=== PATIENT | female | born 1970 | race African-American/Black ===

== ENCOUNTER 2021-11-30 07:40 | Inpatient (IN) ==
[2021-11-30] MEDS ORDERED: ONDANSETRON 4 MG/2 ML VIAL IV STA (08:25)
[2021-11-30] MEDS ORDERED: SODIUM CHLORIDE 0.9% 1,000 ML IV STA (08:25)
[2021-11-30 08:37] LABS: Basophils # 0.1 10*3/uL (0.0-0.2); Basophils % 0.9 % (0.0-0.8); Eosinophils % 0.2 % (0.00-10.9); Hematocrit 22.5 VOL% (35.7-47.0); Hemoglobin 7.1 GM/DL (12.0-16.0); Immature Granulocytes % 3.9 %; Immature Granulocytes Absolute 0.36 #; Lymphocytes # 2.6 10*3/uL (1.4-4.0); Lymphocytes % 27.8 % (21.3-54.2); Mean Corpuscular HGB Conc 31.6 GM/DL (32-36); Mean Corpuscular Volume 81.5 FL (87-102); Monocytes # 3.2 10*3/uL (0.11-0.8); Monocytes % 34.4 % (1.7-12.7); NRBC # 17.23 10*3/uL; Neutrophils % 32.8 % (38.7-73.9); Platelet Count 108 T/CUMM (130-400); Red Blood Count 2.76 MC/CUMM (3.8-5.5); Red Cell Distribution Width 19.5 % (9.3-17.3); White Blood Count 9.2 T/CUMM (4-12)
[2021-11-30 08:52] LABS: Albumin 3.5 G/DL (3.4-5.0); Bilirubin,Total 1.4 MG/DL (0.20-1.00); Calcium 11.9 MG/DL (8.5-10.1); Potassium 3.7 MMOL/L (3.5-5.1); Total Protein 8.6 G/DL (6.4-8.2)
[2021-11-30 09:02] LABS: Lymphocytes 47 % (20-55); Nucleated Red Blood Cells 384 (0-5); Total Cells Counted 100
[2021-11-30 09:03] LABS: Atypical Lymphocytes Few; Hypochromia 1+; Microcytosis 1+
[2021-11-30 09:45] LABS: % Iron Saturation 16.7 % (18-50); Ferritin 897.3 ng/mL (8-252)
[2021-11-30 09:59] LABS: Folate > 24.00 NG/ML (5.38-24.0); Vitamin B12 920 PG/ML (211-911)
[2021-11-30] MEDS ORDERED: ACETAMINOPHEN 325 MG TABLET PO PRN (10:30)
[2021-11-30] MEDS ORDERED: PROMETHAZINE 25 MG/1 ML VIAL IM PRN (10:30)
[2021-11-30] MEDS ORDERED: DEXTROSE 10% 250 ML BAG IV PRN ×2 (10:30→16:28)
[2021-11-30] MEDS ORDERED: GLUCAGON 1 MG VIAL IM PRN (10:30)
[2021-11-30] MEDS ORDERED: ONDANSETRON 4 MG/2 ML VIAL IV PRN (10:30)
[2021-11-30] MEDS ORDERED: DOCUSATE SODIUM 100 MG CAPSULE PO PRN (10:30)
[2021-11-30 10:51] LABS: Basophils # 0.1 10*3/uL (0.0-0.2); Basophils % 0.9 % (0.0-0.8); Eosinophils % 0.2 % (0.00-10.9); Hematocrit 22.5 VOL% (35.7-47.0); Hemoglobin 7.1 GM/DL (12.0-16.0); Immature Granulocytes % 3.9 %; Immature Granulocytes Absolute 0.36 #; Lymphocytes # 2.6 10*3/uL (1.4-4.0); Lymphocytes % 27.8 % (21.3-54.2); Mean Corpuscular HGB Conc 31.6 GM/DL (32-36); Mean Corpuscular Volume 81.5 FL (87-102); Monocytes # 3.2 10*3/uL (0.11-0.8); Monocytes % 34.4 % (1.7-12.7); NRBC # 17.23 10*3/uL; Neutrophils % 32.8 % (38.7-73.9); Platelet Count 108 T/CUMM (130-400); Red Blood Count 2.76 MC/CUMM (3.8-5.5); Red Cell Distribution Width 19.5 % (9.3-17.3); White Blood Count 9.2 T/CUMM (4-12)
[2021-11-30 10:56] LABS: Atypical Lymphocytes Few; Hypochromia 1+; Lymphocytes 47 % (20-55); Total Cells Counted 100
[2021-11-30 10:57] LABS: Microcytosis 1+; Nucleated Red Blood Cells 384 (0-5)
[2021-11-30] MEDS: LACTATED RINGERS 1,000 ML IV SCH ×2 (11:02→21:33)
[2021-11-30 11:32] LABS: PT Patient Result 11.3 SECS (10.5-12.0); Partial Thromboplastin Time 20.8 SECS (23.7-32.9)
[2021-11-30 11:44] LABS: HIV Antigen/Antibody Result Nonreactive (Nonreactive)
[2021-11-30 11:46] LABS: Thyroid Stimulating Hormone 0.822 uIU/ml (0.358-3.74)
[2021-11-30] MEDS: INSULIN LISPRO 100 UNIT/ML SUBCUT SCH ×2 (12:46→20:00)
[2021-11-30 14:44] LABS: Bilirubin,Urine Negative (Negative); Blood, Urine Negative (Negative); Glucose,Urine (UA) Negative (Negative); Ketones,Urine Negative (Negative); Nitrite,Urine Negative (Negative); Protein,Urine Negative (Negative); Urine Appearance Clear (Clear); Urine Color Yellow (Yellow); Urine pH 5.5 (4.5-8.0)
[2021-11-30 14:46] LABS: Hematocrit 19.7 VOL% (35.7-47.0)
[2021-11-30 14:50] LABS: Bacteria,Urine Occasional /HPF (Few); Hemoglobin 6.1 GM/DL (12.0-16.0); Hyaline Casts,Urine 1 /LPF (0-3); Mucus,Urine Occasional /LPF (Occasional); RBC,Urine <1 /HPF (0-4); Squamous Epithelial Cell,Urine Occasional /HPF (0-10)
[2021-11-30] MEDS ORDERED: SODIUM CHLORIDE 0.9% 1,000 ML IV PRN (15:28)
[2021-11-30 15:32] LABS: Hematocrit 17.7 VOL% (35.7-47.0)
[2021-11-30 15:33] LABS: Hemoglobin 5.7 GM/DL (12.0-16.0)
[2021-11-30] MEDS: DOCUSATE SODIUM 100 MG CAPSULE PO SCH (22:13)
[2021-11-30] MEDS: MAGNESIUM HYDROXIDE SUSP 30 ML UDCUP PO PRN (22:13)
[2021-12-01] MEDS: INSULIN LISPRO 100 UNIT/ML SUBCUT SCH ×5 (02:48→23:26)
[2021-12-01] MEDS: LACTATED RINGERS 1,000 ML IV SCH ×4 (02:53→18:00)
[2021-12-01 04:45] LABS: Basophils % 0.6 % (0.0-0.8); Eosinophils % 0.3 % (0.00-10.9); Hematocrit 24.4 VOL% (35.7-47.0); Hemoglobin 8.2 GM/DL (12.0-16.0); Immature Granulocytes % 2.6 %; Immature Granulocytes Absolute 0.16 #; Lymphocytes # 2.6 10*3/uL (1.4-4.0); Lymphocytes % 41.2 % (21.3-54.2); Mean Corpuscular HGB Conc 33.6 GM/DL (32-36); Mean Corpuscular Volume 81.9 FL (87-102); Monocytes # 2.1 10*3/uL (0.11-0.8); Monocytes % 33.4 % (1.7-12.7); NRBC # 9.86 10*3/uL; Neutrophils % 21.9 % (38.7-73.9); Platelet Count 74 T/CUMM (130-400); Red Blood Count 2.98 MC/CUMM (3.8-5.5); Red Cell Distribution Width 16.1 % (9.3-17.3); White Blood Count 6.2 T/CUMM (4-12)
[2021-12-01 05:07] LABS: Albumin 2.8 G/DL (3.4-5.0); Bilirubin,Total 1.4 MG/DL (0.20-1.00); Calcium 10.7 MG/DL (8.5-10.1); Osmolality,Calculated 281.4 MOS/KG (273-304); Potassium 3.8 MMOL/L (3.5-5.1)
[2021-12-01 05:08] LABS: Lymphocytes 64 % (20-55); Nucleated Red Blood Cells 207 (0-5); Total Cells Counted 100
[2021-12-01 05:09] LABS: Atypical Lymphocytes Few; Hypochromia 1+; Microcytosis 1+
[2021-12-01] MEDS: MAGNESIUM HYDROXIDE SUSP 30 ML UDCUP PO PRN (07:59)
[2021-12-01] MEDS: DOCUSATE SODIUM 100 MG CAPSULE PO SCH ×2 (08:00→21:57)
[2021-12-01] MEDS: PANTOPRAZOLE 40 MG TABLET PO SCH (08:00)
[2021-12-01] MEDS ORDERED: LIDOCAINE 2% 5 ML VIAL ONE (12:43)
[2021-12-01] MEDS ORDERED: propofoL 200 MG/20 ML VIAL IV ONE (12:43)
[2021-12-01] MEDS ORDERED: BISACODYL 5 MG TABLET PO ONE (15:00)
[2021-12-01] MEDS ORDERED: POLYETHYLENE GLYCOL POWDER 255 GM BOTTLE PO ONE (18:00)
[2021-12-02] MEDS: LACTATED RINGERS 1,000 ML IV SCH ×4 (03:38→20:14)
[2021-12-02 04:11] LABS: Basophils % 0.7 % (0.0-0.8); Eosinophils % 0.3 % (0.00-10.9); Hematocrit 24.8 VOL% (35.7-47.0); Hemoglobin 8.2 GM/DL (12.0-16.0); Immature Granulocytes % 4.2 %; Immature Granulocytes Absolute 0.26 #; Lymphocytes # 1.2 10*3/uL (1.4-4.0); Lymphocytes % 18.9 % (21.3-54.2); Mean Corpuscular HGB Conc 33.1 GM/DL (32-36); Mean Corpuscular Volume 81.8 FL (87-102); Monocytes # 2.7 10*3/uL (0.11-0.8); Monocytes % 43.9 % (1.7-12.7); NRBC # 10.22 10*3/uL; Platelet Count 73 T/CUMM (130-400); Red Blood Count 3.03 MC/CUMM (3.8-5.5); Red Cell Distribution Width 16.6 % (9.3-17.3); White Blood Count 6.2 T/CUMM (4-12)
[2021-12-02 04:18] LABS: PT Patient Result 11.4 SECS (10.5-12.0)
[2021-12-02 04:35] LABS: Atypical Lymphocytes Few; Band Neutrophils 2 % (0-10); Hypochromia 1+; Lymphocytes 47 % (20-55); Microcytosis 1+; Nucleated Red Blood Cells 307 (0-5); Platelet Estimate Decreased; Total Cells Counted 100
[2021-12-02] MEDS ORDERED: POLYETHYLENE GLYCOL POWDER 255 GM BOTTLE PO ONE (05:00)
[2021-12-02] MEDS: INSULIN LISPRO 100 UNIT/ML SUBCUT SCH ×3 (06:16→20:14)
[2021-12-02] MEDS ORDERED: LACTATED RINGERS 1,000 ML IV SCH (08:00)
[2021-12-02 11:20] LABS: Calcium 10.1 MG/DL (8.5-10.1); Osmolality,Calculated 275.7 MOS/KG (273-304); Potassium 3.6 MMOL/L (3.5-5.1)
[2021-12-02] MEDS ORDERED: propofoL 200 MG/20 ML VIAL IV ONE (13:04)
[2021-12-02] MEDS ORDERED: LIDOCAINE 2% 5 ML VIAL ONE (13:04)
[2021-12-02] MEDS: DOCUSATE SODIUM 100 MG CAPSULE PO SCH ×2 (14:06→20:23)
[2021-12-02] MEDS: PANTOPRAZOLE 40 MG TABLET PO SCH (14:06)
[2021-12-02] MEDS ORDERED: IRON DEXTRAN 1,000 MG in SODIUM CHLORIDE 0.9% 500 ML IV ONE (15:49)
[2021-12-02] MEDS ORDERED: IRON DEXTRAN 25 MG in SYRINGE 1 EACH IV ONE (15:49)
[2021-12-02] MEDS ORDERED: DEXTROSE 50% 25 GM/50 ML VIAL IV PRN (16:29)
[2021-12-02] MEDS ORDERED: GLUCAGON 1 MG VIAL IM PRN (16:29)
[2021-12-02] MEDS: FERRIC GLUCONATE COMPLEX 125 MG in SODIUM CHLORIDE 0.9% 100 ML IV SCH (18:01)
[2021-12-03] MEDS: INSULIN LISPRO 100 UNIT/ML SUBCUT SCH ×3 (01:11→12:45)
[2021-12-03 04:50] LABS: Basophils % 0.4 % (0.0-0.8); Hematocrit 22.8 VOL% (35.7-47.0); Hemoglobin 7.6 GM/DL (12.0-16.0); Immature Granulocytes % 2.6 %; Immature Granulocytes Absolute 0.12 #; Lymphocytes # 1.6 10*3/uL (1.4-4.0); Lymphocytes % 34.6 % (21.3-54.2); Mean Corpuscular HGB Conc 33.3 GM/DL (32-36); Mean Corpuscular Volume 82.3 FL (87-102); Monocytes # 1.5 10*3/uL (0.11-0.8); Monocytes % 32.3 % (1.7-12.7); NRBC # 7.25 10*3/uL; Neutrophils % 30.1 % (38.7-73.9); Platelet Count 70 T/CUMM (130-400); Red Blood Count 2.77 MC/CUMM (3.8-5.5); Red Cell Distribution Width 17.1 % (9.3-17.3); White Blood Count 4.7 T/CUMM (4-12)
[2021-12-03 05:05] LABS: Osmolality,Calculated 276.5 MOS/KG (273-304); Potassium 3.6 MMOL/L (3.5-5.1)
[2021-12-03] MEDS: LACTATED RINGERS 1,000 ML IV SCH ×2 (05:13→12:44)
[2021-12-03 05:35] LABS: Lymphocytes 49 % (20-55); Nucleated Red Blood Cells 281 (0-5); Total Cells Counted 100
[2021-12-03 05:36] LABS: Hypochromia 1+; Microcytosis 1+
[2021-12-03 05:37] LABS: Anisocytosis 1+; Atypical Lymphocytes Few; Platelet Estimate Decreased
[2021-12-03] MEDS: DOCUSATE SODIUM 100 MG CAPSULE PO SCH (09:18)
[2021-12-03] MEDS: PANTOPRAZOLE 40 MG TABLET PO SCH (09:18)
[2021-12-03 16:38] VITALS: BP 110/68
[2021-12-03] MEDS: FERRIC GLUCONATE COMPLEX 125 MG in SODIUM CHLORIDE 0.9% 100 ML IV SCH (17:01)
[2021-12-04] MEDS ORDERED: FERROUS SULFATE 325 MG TABLET PO SCH (09:00)
== END 2021-12-03 18:13 | disposition home or self-care (01) | DRG 641 ==
LOC: N.ED 07:40 → SUATTDRO 09:50 → N.EDINP 09:50 → N.OB 14:47 → N.TELES 17:47
PROVIDERS: ADMIT Internal Medicine; ATTEND Hospitalist

== ENCOUNTER 2022-01-30 18:31 | Inpatient (IN) ==
[2022-01-30] MEDS ORDERED: SODIUM CHLORIDE 0.9% 1,000 ML IV STA ×2 (19:22→22:03)
[2022-01-30] MEDS ORDERED: ONDANSETRON 4 MG/2 ML VIAL IV ONE (19:22)
[2022-01-30] MEDS ORDERED: ALUM/MAG/SIMETH/LIDO VISC 1:1 30 ML BOTTLE PO STA (19:42)
[2022-01-30 19:49] LABS: Basophils # 0.1 10*3/uL (0.0-0.2); Basophils % 0.9 % (0.0-0.8); Eosinophils % 0.1 % (0.00-10.9); Hematocrit 23.6 VOL% (35.7-47.0); Hemoglobin 7.6 GM/DL (12.0-16.0); Immature Granulocytes % 9.7 %; Immature Granulocytes Absolute 0.67 #; Lymphocytes # 1.8 10*3/uL (1.4-4.0); Lymphocytes % 25.6 % (21.3-54.2); Mean Corpuscular HGB Conc 32.2 GM/DL (32-36); Mean Corpuscular Volume 81.7 FL (87-102); Monocytes # 1.1 10*3/uL (0.11-0.8); Monocytes % 15.7 % (1.7-12.7); NRBC # 3.99 10*3/uL; Red Blood Count 2.89 MC/CUMM (3.8-5.5); Red Cell Distribution Width 23.6 % (9.3-17.3); White Blood Count 6.9 T/CUMM (4-12)
[2022-01-30 19:54] LABS: Platelet Count 26 T/CUMM (130-400)
[2022-01-30 20:04] LABS: Albumin 3.2 G/DL (3.4-5.0); Bilirubin,Total 1.2 MG/DL (0.20-1.00); Calcium 10.5 MG/DL (8.5-10.1); Potassium 3.6 MMOL/L (3.5-5.1); Total Protein 7.1 G/DL (6.4-8.2)
[2022-01-30 20:31] LABS: Lymphocytes 51 % (20-55); Nucleated Red Blood Cells 82 /100 WBC (0-5); Total Cells Counted 100
[2022-01-30] MEDS ORDERED: MORPHINE 2 MG/1 ML SYRINGE IV STA (20:31)
[2022-01-30] MEDS ORDERED: ONDANSETRON 4 MG/2 ML VIAL IV STA (20:31)
[2022-01-30 20:32] LABS: Anisocytosis 1+; Hypochromia 1+; Polychromasia Slight; Schistocytes Few
[2022-01-30 20:36] LABS: Arterial Base Excess iSTAT 3 MMOL/L (-2.5-2.5); Arterial Bicarbonate iSTAT 26.8 MMOL/L (20-26); Arterial O2 Saturation iSTAT 76 % (95-100); Arterial PCO2 iSTAT 34 MM HG (35-48); Arterial PO2 iSTAT 37 MM HG (80-95); Arterial Total CO2 iSTAT 28 MMO/L (23-27)
[2022-01-30 21:14] LABS: Bilirubin,Urine Negative (Negative); Blood, Urine Trace mg/dL (Negative); Glucose,Urine (UA) >=1000 mg/dL (Negative); Ketones,Urine 15 mg/dL (Negative); Nitrite,Urine Negative (Negative); Protein,Urine Trace mg/dL (Negative); Urine Appearance Clear (Clear); Urine Color Yellow (Yellow)
[2022-01-30 21:15] LABS: Bacteria,Urine Occasional /HPF (Few); RBC,Urine 1 /HPF (0-4); Squamous Epithelial Cell,Urine Occasional /HPF (0-10)
[2022-01-30] MEDS ORDERED: ACETAMINOPHEN 500 MG TABLET PO STA (23:13)
[2022-01-30] MEDS ORDERED: GLUCAGON 1 MG VIAL IM PRN (23:42)
[2022-01-30] MEDS ORDERED: hydrALAZINE 20 MG/1 ML VIAL IV PRN (23:47)
[2022-01-30] MEDS ORDERED: ZALEPLON 5 MG CAPSULE PO PRN (23:47)
[2022-01-30] MEDS ORDERED: PROMETHAZINE 25 MG/1 ML VIAL IM PRN (23:47)
[2022-01-30] MEDS ORDERED: NICOTINE 21 MG/24 HR PATCH TRANSDERM PRN (23:47)
[2022-01-30] MEDS ORDERED: guaiFENesin/DM ER 600-30 MG TABLET PO PRN (23:47)
[2022-01-30] MEDS ORDERED: ALBUTEROL/IPRATROPIUM 3 ML NEB RESP TX PRN (23:47)
[2022-01-30] MEDS ORDERED: diphenhydrAMINE CAP 25 MG CAPSULE PO PRN (23:47)
[2022-01-31] MEDS ORDERED: PANTOPRAZOLE 40 MG VIAL IV ONE (00:12)
[2022-01-31] MEDS: PANTOPRAZOLE 40 MG VIAL IV SCH ×3 (00:13→21:27)
[2022-01-31] MEDS: MORPHINE 2 MG/1 ML SYRINGE IV PRN ×4 (00:13→18:41)
[2022-01-31] MEDS ORDERED: DEXTROSE 10% 250 ML BAG IV PRN (00:20)
[2022-01-31] MEDS: SODIUM CHLORIDE 0.9% 1,000 ML IV SCH ×2 (01:58→21:26)
[2022-01-31 04:52] LABS: Basophils % 0.6 % (0.0-0.8); Eosinophils % 0.2 % (0.00-10.9); Hematocrit 18.1 VOL% (35.7-47.0); Immature Granulocytes % 8.6 %; Immature Granulocytes Absolute 0.41 #; Lymphocytes # 1.6 10*3/uL (1.4-4.0); Mean Corpuscular Volume 82.3 FL (87-102); Monocytes # 1.1 10*3/uL (0.11-0.8); Monocytes % 22.1 % (1.7-12.7); NRBC # 2.63 10*3/uL; Neutrophils % 34.5 % (38.7-73.9); Red Cell Distribution Width 23.2 % (9.3-17.3); White Blood Count 4.8 T/CUMM (4-12)
[2022-01-31 04:55] LABS: Hemoglobin 5.8 GM/DL (12.0-16.0); Platelet Count 17 T/CUMM (130-400)
[2022-01-31 05:05] LABS: Calcium 9.1 MG/DL (8.5-10.1); Osmolality,Calculated 285.5 MOS/KG (273-304)
[2022-01-31] MEDS ORDERED: SODIUM CHLORIDE 0.9% 1,000 ML IV PRN ×2 (05:06→06:34)
[2022-01-31 05:16] LABS: Band Neutrophils 1 % (0-10); Hypochromia 1+; Lymphocytes 49 % (20-55); Microcytosis 1+; Nucleated Red Blood Cells 85 /100 WBC (0-5); Platelet Estimate Decreased; Total Cells Counted 100
[2022-01-31 05:17] LABS: Atypical Lymphocytes Few
[2022-01-31] MEDS: INSULIN LISPRO 100 UNIT/ML SUBCUT SCH ×4 (09:18→22:13)
[2022-01-31] MEDS: DOCUSATE SODIUM 100 MG CAPSULE PO SCH ×2 (09:19→21:27)
[2022-01-31 19:04] LABS: Basophils % 0.7 % (0.0-0.8); Hematocrit 25.9 VOL% (35.7-47.0); Immature Granulocytes % 8.9 %; Immature Granulocytes Absolute 0.39 #; Lymphocytes # 1.6 10*3/uL (1.4-4.0); Mean Corpuscular HGB Conc 33.2 GM/DL (32-36); Mean Corpuscular Volume 84.4 FL (87-102); Monocytes # 0.8 10*3/uL (0.11-0.8); Monocytes % 18.5 % (1.7-12.7); NRBC # 2.65 10*3/uL; Neutrophils % 35.9 % (38.7-73.9); Platelet Count 66 T/CUMM (130-400); Red Blood Count 3.07 MC/CUMM (3.8-5.5); White Blood Count 4.4 T/CUMM (4-12)
[2022-01-31 19:09] LABS: Hemoglobin 8.6 GM/DL (12.0-16.0)
[2022-01-31 19:59] LABS: Band Neutrophils 10 % (0-10); Lymphocytes 57 % (20-55); Metamyelocytes 1 %; Nucleated Red Blood Cells 115 /100 WBC (0-5); Platelet Estimate Decreased; Polychromasia Slight; Total Cells Counted 100
[2022-02-01] MEDS: SODIUM CHLORIDE 0.9% 1,000 ML IV SCH ×3 (00:43→08:40)
[2022-02-01] MEDS: MORPHINE 2 MG/1 ML SYRINGE IV PRN ×4 (01:16→18:34)
[2022-02-01] MEDS: ONDANSETRON 4 MG/2 ML VIAL IV PRN ×2 (08:10→18:31)
[2022-02-01] MEDS ORDERED: PROMETHAZINE 25 MG/1 ML VIAL IV PRN (09:32)
[2022-02-01] MEDS: CEFEPIME 1,000 MG in SODIUM CHLORIDE 0.9% 100 ML IV SCH ×3 (09:55→21:54)
[2022-02-01] MEDS: PANTOPRAZOLE 40 MG VIAL IV SCH ×2 (09:57→21:00)
[2022-02-01] MEDS: INSULIN LISPRO 100 UNIT/ML SUBCUT SCH ×4 (10:02→21:53)
[2022-02-01] MEDS: DOCUSATE SODIUM 100 MG CAPSULE PO SCH ×2 (10:02→21:00)
[2022-02-01] MEDS ORDERED: MAGNESIUM SULF RIDER 2 GM/50 ML PREMIX IV ONE (10:57)
[2022-02-01] MEDS: SUCRALFATE 1 GM/10 ML UDCUP PO SCH ×3 (11:05→21:00)
[2022-02-01] MEDS: PROMETHAZINE INJ 25 MG in SODIUM CHLORIDE 0.9% 50 ML IV PRN (11:05)
[2022-02-02] MEDS: MORPHINE 2 MG/1 ML SYRINGE IV PRN ×5 (00:24→21:42)
[2022-02-02] MEDS: CEFEPIME 1,000 MG in SODIUM CHLORIDE 0.9% 100 ML IV SCH ×4 (02:46→21:39)
[2022-02-02 08:22] LABS: Hemoglobin 8.1 GM/DL (12.0-16.0)
[2022-02-02 08:31] LABS: Basophils % 0.7 % (0.0-0.8); Eosinophils % 0.2 % (0.00-10.9); Hematocrit 24.7 VOL% (35.7-47.0); Immature Granulocytes % 9.7 %; Immature Granulocytes Absolute 0.44 #; Lymphocytes # 1.4 10*3/uL (1.4-4.0); Lymphocytes % 30.2 % (21.3-54.2); Mean Corpuscular HGB Conc 32.8 GM/DL (32-36); Mean Corpuscular Volume 85.2 FL (87-102); Monocytes # 1.1 10*3/uL (0.11-0.8); Monocytes % 23.2 % (1.7-12.7); NRBC # 2.63 10*3/uL; Red Cell Distribution Width 19.7 % (9.3-17.3); White Blood Count 4.5 T/CUMM (4-12)
[2022-02-02] MEDS: PANTOPRAZOLE 40 MG VIAL IV SCH ×2 (08:39→21:40)
[2022-02-02] MEDS: SUCRALFATE 1 GM/10 ML UDCUP PO SCH ×4 (08:40→21:39)
[2022-02-02] MEDS: DOCUSATE SODIUM 100 MG CAPSULE PO SCH ×2 (08:40→21:40)
[2022-02-02 08:41] LABS: Platelet Count 39 T/CUMM (130-400)
[2022-02-02] MEDS: INSULIN LISPRO 100 UNIT/ML SUBCUT SCH ×4 (08:41→21:39)
[2022-02-02 08:44] LABS: Calcium 9.4 MG/DL (8.5-10.1); Osmolality,Calculated 278.8 MOS/KG (273-304); Potassium 3.5 MMOL/L (3.5-5.1)
[2022-02-02 08:46] LABS: Band Neutrophils 4 % (0-10); Lymphocytes 44 % (20-55); Nucleated Red Blood Cells 108 /100 WBC (0-5); Platelet Estimate Decreased; Total Cells Counted 100
[2022-02-02 08:47] LABS: Atypical Lymphocytes Few; Hypochromia Slight; Microcytosis Slight
[2022-02-02] MEDS: SODIUM CHLORIDE 0.9% 1,000 ML IV SCH ×4 (15:39→23:00)
[2022-02-03] MEDS: CEFEPIME 1,000 MG in SODIUM CHLORIDE 0.9% 100 ML IV SCH ×4 (02:13→20:32)
[2022-02-03 05:11] LABS: Basophils % 0.6 % (0.0-0.8); Hematocrit 23.2 VOL% (35.7-47.0); Hemoglobin 7.7 GM/DL (12.0-16.0); Immature Granulocytes % 10.8 %; Immature Granulocytes Absolute 0.52 #; Lymphocytes # 1.4 10*3/uL (1.4-4.0); Lymphocytes % 29.3 % (21.3-54.2); Mean Corpuscular HGB Conc 33.2 GM/DL (32-36); Mean Corpuscular Volume 84.1 FL (87-102); Monocytes # 1.8 10*3/uL (0.11-0.8); Monocytes % 36.4 % (1.7-12.7); NRBC # 2.65 10*3/uL; Neutrophils % 22.9 % (38.7-73.9); Red Blood Count 2.76 MC/CUMM (3.8-5.5); Red Cell Distribution Width 19.5 % (9.3-17.3); White Blood Count 4.8 T/CUMM (4-12)
[2022-02-03 05:14] LABS: Platelet Count 36 T/CUMM (130-400)
[2022-02-03 05:32] LABS: Band Neutrophils 3 % (0-10); Lymphocytes 50 % (20-55); Nucleated Red Blood Cells 84 /100 WBC (0-5); Total Cells Counted 100
[2022-02-03 05:33] LABS: Atypical Lymphocytes Few; Hypochromia 1+; Microcytosis 1+; Platelet Estimate Decreased
[2022-02-03] MEDS: SUCRALFATE 1 GM/10 ML UDCUP PO SCH ×4 (08:44→20:33)
[2022-02-03] MEDS: DOCUSATE SODIUM 100 MG CAPSULE PO SCH ×2 (08:45→20:34)
[2022-02-03] MEDS: PANTOPRAZOLE 40 MG VIAL IV SCH ×2 (08:45→20:33)
[2022-02-03] MEDS: INSULIN LISPRO 100 UNIT/ML SUBCUT SCH ×4 (08:48→20:35)
[2022-02-03] MEDS: MORPHINE 2 MG/1 ML SYRINGE IV PRN ×4 (08:50→23:47)
[2022-02-03] MEDS: SODIUM CHLORIDE 0.9% 1,000 ML IV SCH ×2 (08:52→16:10)
[2022-02-03 12:21] LABS: Reason for Referral MYELOID NEOPLASM; Specimen Source Peripheral blood
[2022-02-03] MEDS: ACETAMINOPHEN 325 MG TABLET PO PRN (16:07)
[2022-02-04] MEDS: SODIUM CHLORIDE 0.9% 1,000 ML IV SCH ×2 (02:45→10:19)
[2022-02-04] MEDS: CEFEPIME 1,000 MG in SODIUM CHLORIDE 0.9% 100 ML IV SCH ×4 (03:50→21:15)
[2022-02-04] MEDS: MORPHINE 2 MG/1 ML SYRINGE IV PRN ×4 (05:32→21:22)
[2022-02-04 07:41] LABS: Basophils % 0.5 % (0.0-0.8); Immature Granulocytes % 8.2 %; Immature Granulocytes Absolute 0.35 #; Lymphocytes # 1.7 10*3/uL (1.4-4.0); Lymphocytes % 40.1 % (21.3-54.2); Mean Corpuscular HGB Conc 33.3 GM/DL (32-36); Mean Corpuscular Volume 84.5 FL (87-102); Monocytes # 1.3 10*3/uL (0.11-0.8); Monocytes % 29.8 % (1.7-12.7); NRBC # 2.72 10*3/uL; Neutrophils % 21.4 % (38.7-73.9); Red Blood Count 2.84 MC/CUMM (3.8-5.5); White Blood Count 4.3 T/CUMM (4-12)
[2022-02-04 07:48] LABS: Platelet Count 24 T/CUMM (130-400)
[2022-02-04 07:57] LABS: Calcium 9.6 MG/DL (8.5-10.1); Osmolality,Calculated 278.4 MOS/KG (273-304); Potassium 3.1 MMOL/L (3.5-5.1)
[2022-02-04 08:04] LABS: Atypical Lymphocytes Few; Band Neutrophils 1 % (0-10); Hypochromia 1+; Lymphocytes 55 % (20-55); Microcytosis 1+; Nucleated Red Blood Cells 125 /100 WBC (0-5); Platelet Estimate Decreased; Total Cells Counted 100
[2022-02-04 08:15] LABS: Albumin 1.7 G/DL (3.4-5.0); Bilirubin,Direct 0.64 MG/DL (0.0-0.20); Bilirubin,Indirect 0.7 MG/DL (0.0-1.0); Bilirubin,Total 1.3 MG/DL (0.20-1.00); Total Protein 6.1 G/DL (6.4-8.2)
[2022-02-04] MEDS ORDERED: FUROSEMIDE 40 MG/4 ML VIAL IV ONE (08:45)
[2022-02-04] MEDS ORDERED: POTASSIUM CHLORIDE 20 MEQ TABLET PO ONE (08:45)
[2022-02-04] MEDS: DOCUSATE SODIUM 100 MG CAPSULE PO SCH ×2 (08:58→21:16)
[2022-02-04] MEDS: PANTOPRAZOLE 40 MG VIAL IV SCH ×2 (08:58→21:15)
[2022-02-04] MEDS: SUCRALFATE 1 GM/10 ML UDCUP PO SCH ×4 (08:59→21:16)
[2022-02-04] MEDS: GABAPENTIN 100 MG CAPSULE PO SCH ×2 (09:36→21:16)
[2022-02-04] MEDS: INSULIN LISPRO 100 UNIT/ML SUBCUT SCH ×4 (10:13→21:14)
[2022-02-04] MEDS ORDERED: INSULIN GLARGINE 100 UNIT/ML SUBCUT SCH (21:00)
[2022-02-04] MEDS: SIMVASTATIN 20 MG TABLET PO SCH (21:16)
[2022-02-05] MEDS: MORPHINE 2 MG/1 ML SYRINGE IV PRN ×2 (03:24→22:58)
[2022-02-05] MEDS: CEFEPIME 1,000 MG in SODIUM CHLORIDE 0.9% 100 ML IV SCH (04:31)
[2022-02-05] MEDS: ONDANSETRON 4 MG/2 ML VIAL IV PRN (04:31)
[2022-02-05 06:05] LABS: Basophils % 0.6 % (0.0-0.8); Eosinophils % 0.2 % (0.00-10.9); Hematocrit 20.6 VOL% (35.7-47.0); Immature Granulocytes % 9.2 %; Immature Granulocytes Absolute 0.43 #; Lymphocytes # 1.8 10*3/uL (1.4-4.0); Lymphocytes % 37.5 % (21.3-54.2); Mean Corpuscular Volume 83.1 FL (87-102); Monocytes # 1.6 10*3/uL (0.11-0.8); Monocytes % 33.8 % (1.7-12.7); NRBC # 2.77 10*3/uL; Neutrophils % 18.7 % (38.7-73.9); Red Blood Count 2.48 MC/CUMM (3.8-5.5); Red Cell Distribution Width 18.8 % (9.3-17.3); White Blood Count 4.7 T/CUMM (4-12)
[2022-02-05 06:07] LABS: Platelet Count 8 T/CUMM (130-400)
[2022-02-05] MEDS ORDERED: SODIUM CHLORIDE 0.9% 1,000 ML IV PRN ×2 (06:11→08:30)
[2022-02-05 06:14] LABS: Albumin 1.5 G/DL (3.4-5.0); Bilirubin,Total 0.8 MG/DL (0.20-1.00); Calcium 9.4 MG/DL (8.5-10.1); Osmolality,Calculated 271.7 MOS/KG (273-304); Potassium 2.9 MMOL/L (3.5-5.1); Total Protein 5.8 G/DL (6.4-8.2)
[2022-02-05 06:23] LABS: Band Neutrophils 1 % (0-10); Hypochromia 1+; Lymphocytes 71 % (20-55); Nucleated Red Blood Cells 111 /100 WBC (0-5); Platelet Estimate Decreased; Total Cells Counted 100
[2022-02-05 06:24] LABS: Microcytosis Slight; Ovalocytes Few
[2022-02-05] MEDS: INSULIN LISPRO 100 UNIT/ML SUBCUT SCH ×4 (08:55→22:50)
[2022-02-05] MEDS: SUCRALFATE 1 GM/10 ML UDCUP PO SCH ×4 (09:03→22:28)
[2022-02-05] MEDS: GABAPENTIN 100 MG CAPSULE PO SCH ×2 (09:03→22:28)
[2022-02-05] MEDS: DOCUSATE SODIUM 100 MG CAPSULE PO SCH ×2 (09:03→22:28)
[2022-02-05] MEDS: PANTOPRAZOLE 40 MG VIAL IV SCH ×2 (09:04→22:32)
[2022-02-05] MEDS: SODIUM CHLORIDE 0.9% 1,000 ML IV SCH (09:40)
[2022-02-05] MEDS: POLYETHYLENE GLYCOL POWDER 17 GM PACK PO SCH (09:56)
[2022-02-05] MEDS: FUROSEMIDE 20 MG TABLET PO SCH ×2 (09:57→17:32)
[2022-02-05] MEDS: ACETAMINOPHEN 325 MG TABLET PO PRN (14:22)
[2022-02-05] MEDS ORDERED: POTASSIUM CHLORIDE 20 MEQ TABLET PO ONE ×2 (17:31→21:00)
[2022-02-05] MEDS: SIMVASTATIN 20 MG TABLET PO SCH (22:32)
[2022-02-05] MEDS: INSULIN GLARGINE 100 UNIT/ML SUBCUT SCH (22:39)
[2022-02-06 04:11] LABS: Basophils % 0.8 % (0.0-0.8); Eosinophils % 0.5 % (0.00-10.9); Hematocrit 22.3 VOL% (35.7-47.0); Hemoglobin 7.5 GM/DL (12.0-16.0); Immature Granulocytes % 8.2 %; Immature Granulocytes Absolute 0.32 #; Lymphocytes # 1.3 10*3/uL (1.4-4.0); Lymphocytes % 33.2 % (21.3-54.2); Mean Corpuscular HGB Conc 33.6 GM/DL (32-36); Mean Corpuscular Volume 84.5 FL (87-102); Monocytes # 1.6 10*3/uL (0.11-0.8); Monocytes % 41.4 % (1.7-12.7); NRBC # 2.63 10*3/uL; Neutrophils % 15.9 % (38.7-73.9); Red Blood Count 2.64 MC/CUMM (3.8-5.5); Red Cell Distribution Width 17.5 % (9.3-17.3); White Blood Count 3.9 T/CUMM (4-12)
[2022-02-06 04:17] LABS: Platelet Count 6 T/CUMM (130-400)
[2022-02-06] MEDS ORDERED: SODIUM CHLORIDE 0.9% 1,000 ML IV PRN (04:33)
[2022-02-06 04:35] LABS: Albumin 1.5 G/DL (3.4-5.0); Bilirubin,Total 0.6 MG/DL (0.20-1.00); Calcium 8.9 MG/DL (8.5-10.1); Osmolality,Calculated 278.4 MOS/KG (273-304); Potassium 3.1 MMOL/L (3.5-5.1); Total Protein 5.7 G/DL (6.4-8.2)
[2022-02-06 05:04] LABS: Band Neutrophils 2 % (0-10); Lymphocytes 63 % (20-55); Nucleated Red Blood Cells 113 /100 WBC (0-5); Promyelocytes 1 %; Total Cells Counted 100
[2022-02-06 05:05] LABS: Atypical Lymphocytes Few
[2022-02-06] MEDS: MORPHINE 2 MG/1 ML SYRINGE IV PRN ×3 (05:08→22:29)
[2022-02-06 05:11] LABS: Hypochromia 1+
[2022-02-06 05:12] LABS: Microcytosis 1+; Ovalocytes Slight; Platelet Estimate Decreased
[2022-02-06] MEDS: INSULIN LISPRO 100 UNIT/ML SUBCUT SCH ×4 (09:04→21:47)
[2022-02-06] MEDS: GABAPENTIN 100 MG CAPSULE PO SCH ×2 (09:27→21:47)
[2022-02-06] MEDS: FUROSEMIDE 20 MG TABLET PO SCH ×2 (09:27→15:27)
[2022-02-06] MEDS: DOCUSATE SODIUM 100 MG CAPSULE PO SCH ×2 (09:27→21:47)
[2022-02-06] MEDS: SUCRALFATE 1 GM/10 ML UDCUP PO SCH ×4 (09:27→21:46)
[2022-02-06] MEDS: POLYETHYLENE GLYCOL POWDER 17 GM PACK PO SCH (09:28)
[2022-02-06] MEDS: PANTOPRAZOLE 40 MG VIAL IV SCH ×2 (09:28→21:46)
[2022-02-06] MEDS: POTASSIUM CHLORIDE 20 MEQ TABLET PO PRN ×5 (10:19→21:47)
[2022-02-06] MEDS: BISACODYL 5 MG TABLET PO PRN ×2 (10:19→21:47)
[2022-02-06] MEDS: SIMVASTATIN 20 MG TABLET PO SCH (21:47)
[2022-02-06] MEDS: INSULIN GLARGINE 100 UNIT/ML SUBCUT SCH (21:48)
[2022-02-07] MEDS: MORPHINE 2 MG/1 ML SYRINGE IV PRN ×3 (02:54→20:03)
[2022-02-07 05:59] LABS: Basophils % 0.2 % (0.0-0.8); Hematocrit 22.6 VOL% (35.7-47.0); Hemoglobin 7.5 GM/DL (12.0-16.0); Immature Granulocytes % 7.1 %; Immature Granulocytes Absolute 0.31 #; Lymphocytes # 1.6 10*3/uL (1.4-4.0); Lymphocytes % 37.8 % (21.3-54.2); Mean Corpuscular HGB Conc 33.2 GM/DL (32-36); Mean Corpuscular Volume 85.6 FL (87-102); Monocytes # 1.8 10*3/uL (0.11-0.8); Monocytes % 40.8 % (1.7-12.7); NRBC # 2.82 10*3/uL; Neutrophils % 14.1 % (38.7-73.9); Red Blood Count 2.64 MC/CUMM (3.8-5.5); Red Cell Distribution Width 17.5 % (9.3-17.3); White Blood Count 4.3 T/CUMM (4-12)
[2022-02-07 06:16] LABS: Albumin 1.5 G/DL (3.4-5.0); Bilirubin,Total 0.5 MG/DL (0.20-1.00); Calcium 9.3 MG/DL (8.5-10.1); Potassium 3.3 MMOL/L (3.5-5.1); Total Protein 5.9 G/DL (6.4-8.2)
[2022-02-07 06:17] LABS: Platelet Count 6 T/CUMM (130-400)
[2022-02-07 06:25] LABS: Band Neutrophils 1 % (0-10); Lymphocytes 66 % (20-55); Nucleated Red Blood Cells 111 /100 WBC (0-5); Platelet Estimate Decreased; Total Cells Counted 100
[2022-02-07 06:26] LABS: Atypical Lymphocytes Few; Hypochromia 1+
[2022-02-07] MEDS: SUCRALFATE 1 GM/10 ML UDCUP PO SCH ×4 (06:30→20:02)
[2022-02-07] MEDS: POTASSIUM CHLORIDE 20 MEQ TABLET PO PRN ×3 (07:04→19:29)
[2022-02-07] MEDS: INSULIN LISPRO 100 UNIT/ML SUBCUT SCH ×4 (08:12→21:10)
[2022-02-07] MEDS: PANTOPRAZOLE 40 MG VIAL IV SCH ×2 (08:47→20:02)
[2022-02-07] MEDS: GABAPENTIN 100 MG CAPSULE PO SCH ×2 (08:48→20:01)
[2022-02-07] MEDS: DOCUSATE SODIUM 100 MG CAPSULE PO SCH ×2 (08:48→20:01)
[2022-02-07] MEDS: FUROSEMIDE 20 MG TABLET PO SCH ×2 (08:48→15:48)
[2022-02-07] MEDS: POLYETHYLENE GLYCOL POWDER 17 GM PACK PO SCH (08:49)
[2022-02-07] MEDS ORDERED: SODIUM CHLORIDE 0.9% 1,000 ML IV PRN (09:42)
[2022-02-07] MEDS: FLUCONAZOLE 100 MG TABLET PO SCH (15:48)
[2022-02-07] MEDS: SIMVASTATIN 20 MG TABLET PO SCH (20:02)
[2022-02-07] MEDS: INSULIN GLARGINE 100 UNIT/ML SUBCUT SCH (21:10)
[2022-02-08] MEDS: MORPHINE 2 MG/1 ML SYRINGE IV PRN ×4 (01:19→21:27)
[2022-02-08 05:48] LABS: Basophils % 0.4 % (0.0-0.8); Hematocrit 22.1 VOL% (35.7-47.0); Hemoglobin 7.4 GM/DL (12.0-16.0); Immature Granulocytes Absolute 0.53 #; Lymphocytes % 40.9 % (21.3-54.2); Mean Corpuscular HGB Conc 33.5 GM/DL (32-36); Mean Corpuscular Volume 84.7 FL (87-102); Monocytes # 1.6 10*3/uL (0.11-0.8); Monocytes % 33.7 % (1.7-12.7); NRBC # 2.99 10*3/uL; Red Blood Count 2.61 MC/CUMM (3.8-5.5); Red Cell Distribution Width 17.5 % (9.3-17.3); White Blood Count 4.8 T/CUMM (4-12)
[2022-02-08 05:56] LABS: Platelet Count 16 T/CUMM (130-400)
[2022-02-08 06:11] LABS: Albumin 1.7 G/DL (3.4-5.0); Bilirubin,Total 0.6 MG/DL (0.20-1.00); Calcium 9.5 MG/DL (8.5-10.1); Osmolality,Calculated 268.8 MOS/KG (273-304); Potassium 3.2 MMOL/L (3.5-5.1); Total Protein 6.4 G/DL (6.4-8.2)
[2022-02-08 06:13] LABS: Hypochromia 1+; Lymphocytes 62 % (20-55); Microcytosis 1+; Nucleated Red Blood Cells 129 /100 WBC (0-5); Platelet Estimate Decreased; Total Cells Counted 100
[2022-02-08 06:14] LABS: Atypical Lymphocytes Few
[2022-02-08] MEDS: INSULIN LISPRO 100 UNIT/ML SUBCUT SCH ×4 (07:43→21:26)
[2022-02-08] MEDS: POLYETHYLENE GLYCOL POWDER 17 GM PACK PO SCH ×2 (08:24→21:28)
[2022-02-08] MEDS: PANTOPRAZOLE 40 MG VIAL IV SCH ×2 (08:56→21:27)
[2022-02-08] MEDS: FUROSEMIDE 20 MG TABLET PO SCH ×2 (08:57→16:07)
[2022-02-08] MEDS: FLUCONAZOLE 100 MG TABLET PO SCH (08:57)
[2022-02-08] MEDS: SUCRALFATE 1 GM/10 ML UDCUP PO SCH ×4 (08:57→21:27)
[2022-02-08] MEDS: DOCUSATE SODIUM 100 MG CAPSULE PO SCH ×2 (08:58→21:26)
[2022-02-08] MEDS: GABAPENTIN 100 MG CAPSULE PO SCH ×2 (08:58→21:27)
[2022-02-08] MEDS: POTASSIUM CHLORIDE 20 MEQ TABLET PO PRN ×4 (08:58→18:10)
[2022-02-08] MEDS: POTASSIUM CHLORIDE 20 MEQ TABLET PO SCH ×2 (12:25→21:26)
[2022-02-08] MEDS: MEROPENEM 500 MG in SODIUM CHLORIDE 0.9% 100 ML IV SCH ×3 (12:28→23:36)
[2022-02-08] MEDS: BISACODYL 5 MG TABLET PO PRN (12:31)
[2022-02-08] MEDS ORDERED: FLUCONAZOLE 100 MG TABLET PO SCH (13:49)
[2022-02-08] MEDS: ACETAMINOPHEN 325 MG TABLET PO PRN (16:45)
[2022-02-08] MEDS: INSULIN GLARGINE 100 UNIT/ML SUBCUT SCH (21:26)
[2022-02-08] MEDS: SIMVASTATIN 20 MG TABLET PO SCH (21:26)
[2022-02-09] MEDS: MORPHINE 2 MG/1 ML SYRINGE IV PRN ×4 (01:53→22:16)
[2022-02-09 05:07] LABS: Basophils % 0.6 % (0.0-0.8); Hematocrit 23.3 VOL% (35.7-47.0); Hemoglobin 7.6 GM/DL (12.0-16.0); Immature Granulocytes % 13.3 %; Immature Granulocytes Absolute 0.65 #; Lymphocytes # 1.8 10*3/uL (1.4-4.0); Lymphocytes % 36.5 % (21.3-54.2); Mean Corpuscular HGB Conc 32.6 GM/DL (32-36); Mean Corpuscular Volume 86.3 FL (87-102); Monocytes # 1.6 10*3/uL (0.11-0.8); Monocytes % 33.6 % (1.7-12.7); NRBC # 3.69 10*3/uL; Red Cell Distribution Width 17.4 % (9.3-17.3); White Blood Count 4.9 T/CUMM (4-12)
[2022-02-09 05:12] LABS: Platelet Count 10 T/CUMM (130-400)
[2022-02-09 05:29] LABS: Albumin 1.9 G/DL (3.4-5.0); Bilirubin,Total 0.8 MG/DL (0.20-1.00); Calcium 9.6 MG/DL (8.5-10.1); Osmolality,Calculated 270.8 MOS/KG (273-304); Potassium 3.9 MMOL/L (3.5-5.1); Total Protein 6.4 G/DL (6.4-8.2)
[2022-02-09 05:33] LABS: Band Neutrophils 3 % (0-10); Lymphocytes 68 % (20-55); Myelocytes 1 %; Nucleated Red Blood Cells 125 /100 WBC (0-5); Total Cells Counted 100
[2022-02-09 05:34] LABS: Atypical Lymphocytes Few; Hypochromia 1+; Microcytosis 1+; Platelet Estimate Decreased
[2022-02-09] MEDS: MEROPENEM 500 MG in SODIUM CHLORIDE 0.9% 100 ML IV SCH ×3 (05:45→17:15)
[2022-02-09] MEDS: INSULIN LISPRO 100 UNIT/ML SUBCUT SCH ×4 (07:51→21:34)
[2022-02-09] MEDS: MULTIVITAMIN (BEROCCA) TABLET PO SCH (08:41)
[2022-02-09] MEDS: CHOLECALCIFEROL 1,000 UNIT TABLET PO SCH (08:41)
[2022-02-09] MEDS: GABAPENTIN 100 MG CAPSULE PO SCH ×2 (08:41→21:35)
[2022-02-09] MEDS: SUCRALFATE 1 GM/10 ML UDCUP PO SCH ×4 (08:41→21:36)
[2022-02-09] MEDS: FLUCONAZOLE 100 MG TABLET PO SCH (08:41)
[2022-02-09] MEDS: POTASSIUM CHLORIDE 20 MEQ TABLET PO SCH ×2 (08:41→21:36)
[2022-02-09] MEDS: FUROSEMIDE 20 MG TABLET PO SCH ×2 (08:41→15:39)
[2022-02-09] MEDS: DOCUSATE SODIUM 100 MG CAPSULE PO SCH ×2 (08:41→21:35)
[2022-02-09] MEDS: PANTOPRAZOLE 40 MG VIAL IV SCH ×2 (08:42→21:52)
[2022-02-09] MEDS: POLYETHYLENE GLYCOL POWDER 17 GM PACK PO SCH ×2 (09:11→21:55)
[2022-02-09] MEDS ORDERED: SODIUM CHLORIDE 0.9% 1,000 ML IV PRN (10:45)
[2022-02-09] MEDS: ONDANSETRON 4 MG/2 ML VIAL IV PRN (15:45)
[2022-02-09] MEDS: ACETAMINOPHEN 325 MG TABLET PO PRN (18:23)
[2022-02-09] MEDS: INSULIN GLARGINE 100 UNIT/ML SUBCUT SCH (21:34)
[2022-02-09] MEDS: SIMVASTATIN 20 MG TABLET PO SCH (21:35)
[2022-02-10] MEDS: MEROPENEM 500 MG in SODIUM CHLORIDE 0.9% 100 ML IV SCH ×4 (00:12→17:25)
[2022-02-10] MEDS: ONDANSETRON 4 MG/2 ML VIAL IV PRN ×2 (00:35→15:49)
[2022-02-10] MEDS: ACETAMINOPHEN 325 MG TABLET PO PRN (05:48)
[2022-02-10 06:05] LABS: Basophils % 0.8 % (0.0-0.8); Hematocrit 24.2 VOL% (35.7-47.0); Immature Granulocytes % 10.4 %; Immature Granulocytes Absolute 0.52 #; Lymphocytes # 1.7 10*3/uL (1.4-4.0); Lymphocytes % 33.9 % (21.3-54.2); Mean Corpuscular HGB Conc 33.1 GM/DL (32-36); Mean Corpuscular Volume 85.2 FL (87-102); Monocytes # 1.9 10*3/uL (0.11-0.8); Monocytes % 37.9 % (1.7-12.7); NRBC # 4.88 10*3/uL; Red Blood Count 2.84 MC/CUMM (3.8-5.5); Red Cell Distribution Width 17.9 % (9.3-17.3)
[2022-02-10 06:13] LABS: Platelet Count 23 T/CUMM (130-400)
[2022-02-10 06:28] LABS: Bilirubin,Total 0.8 MG/DL (0.20-1.00); Calcium 10.1 MG/DL (8.5-10.1); Osmolality,Calculated 269.2 MOS/KG (273-304); Potassium 3.9 MMOL/L (3.5-5.1); Total Protein 6.7 G/DL (6.4-8.2)
[2022-02-10 06:37] LABS: Eosinophils 1 % (0-10); Lymphocytes 72 % (20-55); Nucleated Red Blood Cells 160 /100 WBC (0-5); Platelet Estimate Decreased; Total Cells Counted 100
[2022-02-10 06:38] LABS: Atypical Lymphocytes Few; Hypochromia 1+; Microcytosis 1+
[2022-02-10] MEDS: POTASSIUM CHLORIDE 20 MEQ TABLET PO SCH ×2 (09:22→20:37)
[2022-02-10] MEDS: PANTOPRAZOLE 40 MG VIAL IV SCH ×2 (09:22→20:54)
[2022-02-10] MEDS: SUCRALFATE 1 GM/10 ML UDCUP PO SCH ×4 (09:22→20:36)
[2022-02-10] MEDS: CHOLECALCIFEROL 1,000 UNIT TABLET PO SCH (09:23)
[2022-02-10] MEDS: DOCUSATE SODIUM 100 MG CAPSULE PO SCH ×2 (09:23→21:13)
[2022-02-10] MEDS: MULTIVITAMIN (BEROCCA) TABLET PO SCH (09:23)
[2022-02-10] MEDS: GABAPENTIN 100 MG CAPSULE PO SCH ×2 (09:23→20:37)
[2022-02-10] MEDS: FUROSEMIDE 20 MG TABLET PO SCH (09:23)
[2022-02-10] MEDS: FLUCONAZOLE 100 MG TABLET PO SCH (09:23)
[2022-02-10] MEDS: INSULIN LISPRO 100 UNIT/ML SUBCUT SCH ×5 (09:45→21:13)
[2022-02-10] MEDS: POLYETHYLENE GLYCOL POWDER 17 GM PACK PO SCH ×2 (09:45→20:35)
[2022-02-10] MEDS: MORPHINE 2 MG/1 ML SYRINGE IV PRN ×3 (11:12→20:56)
[2022-02-10 16:09] LABS: Bilirubin,Urine Negative (Negative); Glucose,Urine (UA) Negative (Negative); Ketones,Urine Negative (Negative); Nitrite,Urine Negative (Negative); Protein,Urine Negative (Negative); Urine Appearance Clear (Clear); Urine Color Yellow (Yellow); Urine Specific Gravity 1.015 (1.001-1.035)
[2022-02-10 16:10] LABS: Blood, Urine Trace mg/dL (Negative); Urine Urobilinogen >= 8.0 eU/dL (<2.0)
[2022-02-10 16:13] LABS: RBC,Urine 2 /HPF (0-4); Squamous Epithelial Cell,Urine Occasional /HPF (0-10)
[2022-02-10] MEDS: SIMVASTATIN 20 MG TABLET PO SCH (20:36)
[2022-02-10] MEDS: INSULIN GLARGINE 100 UNIT/ML SUBCUT SCH (20:38)
[2022-02-10] MEDS: BISACODYL 5 MG TABLET PO PRN (20:55)
[2022-02-11] MEDS: MEROPENEM 500 MG in SODIUM CHLORIDE 0.9% 100 ML IV SCH ×4 (01:48→18:17)
[2022-02-11 05:17] LABS: Basophils % 0.6 % (0.0-0.8); Hematocrit 22.5 VOL% (35.7-47.0); Hemoglobin 7.4 GM/DL (12.0-16.0); Immature Granulocytes % 8.5 %; Immature Granulocytes Absolute 0.42 #; Lymphocytes # 2.2 10*3/uL (1.4-4.0); Lymphocytes % 43.9 % (21.3-54.2); Mean Corpuscular HGB Conc 32.9 GM/DL (32-36); Mean Corpuscular Volume 85.6 FL (87-102); Monocytes # 1.7 10*3/uL (0.11-0.8); Monocytes % 34.8 % (1.7-12.7); NRBC # 3.47 10*3/uL; Neutrophils % 12.2 % (38.7-73.9); Red Blood Count 2.63 MC/CUMM (3.8-5.5); Red Cell Distribution Width 17.5 % (9.3-17.3)
[2022-02-11 05:22] LABS: Platelet Count 10 T/CUMM (130-400)
[2022-02-11 05:40] LABS: Albumin 1.9 G/DL (3.4-5.0); Calcium 10.3 MG/DL (8.5-10.1); Osmolality,Calculated 264.2 MOS/KG (273-304); Potassium 3.7 MMOL/L (3.5-5.1); Total Protein 6.7 G/DL (6.4-8.2)
[2022-02-11 05:51] LABS: Atypical Lymphocytes Few; Band Neutrophils 3 % (0-10); Hypochromia 1+; Lymphocytes 69 % (20-55); Microcytosis 1+; Nucleated Red Blood Cells 134 /100 WBC (0-5); Platelet Estimate Decreased; Total Cells Counted 100
[2022-02-11] MEDS: INSULIN LISPRO 100 UNIT/ML SUBCUT SCH ×4 (08:10→21:53)
[2022-02-11] MEDS: MORPHINE 2 MG/1 ML SYRINGE IV PRN ×2 (08:18→22:15)
[2022-02-11] MEDS: SUCRALFATE 1 GM/10 ML UDCUP PO SCH ×4 (08:18→21:53)
[2022-02-11] MEDS ORDERED: SODIUM CHLORIDE 0.9% 1,000 ML IV PRN (09:46)
[2022-02-11] MEDS: FLUCONAZOLE 100 MG TABLET PO SCH (10:01)
[2022-02-11] MEDS: POLYETHYLENE GLYCOL POWDER 17 GM PACK PO SCH ×2 (10:01→21:54)
[2022-02-11] MEDS: DOCUSATE SODIUM 100 MG CAPSULE PO SCH ×2 (10:01→21:53)
[2022-02-11] MEDS: GABAPENTIN 100 MG CAPSULE PO SCH ×2 (10:02→21:54)
[2022-02-11] MEDS: POTASSIUM CHLORIDE 20 MEQ TABLET PO SCH ×2 (10:02→21:54)
[2022-02-11] MEDS: MULTIVITAMIN (BEROCCA) TABLET PO SCH (10:02)
[2022-02-11] MEDS: PANTOPRAZOLE 40 MG VIAL IV SCH ×2 (10:03→21:54)
[2022-02-11] MEDS: ONDANSETRON 4 MG/2 ML VIAL IV PRN ×2 (10:10→13:55)
[2022-02-11] MEDS: MICAFUNGIN 100 MG in SODIUM CHLORIDE 0.9% 100 ML IV SCH (13:55)
[2022-02-11] MEDS: PROMETHAZINE INJ 25 MG in SODIUM CHLORIDE 0.9% 50 ML IV PRN (15:34)
[2022-02-11] MEDS: INSULIN GLARGINE 100 UNIT/ML SUBCUT SCH (21:54)
[2022-02-11] MEDS: SIMVASTATIN 20 MG TABLET PO SCH (21:55)
[2022-02-12] MEDS: MEROPENEM 500 MG in SODIUM CHLORIDE 0.9% 100 ML IV SCH ×4 (00:51→17:33)
[2022-02-12 06:15] LABS: Basophils % 0.5 % (0.0-0.8); Hematocrit 23.4 VOL% (35.7-47.0); Hemoglobin 7.7 GM/DL (12.0-16.0); Immature Granulocytes % 11.6 %; Immature Granulocytes Absolute 0.68 #; Lymphocytes # 2.1 10*3/uL (1.4-4.0); Lymphocytes % 36.6 % (21.3-54.2); Mean Corpuscular HGB Conc 32.9 GM/DL (32-36); Mean Corpuscular Volume 86.7 FL (87-102); Monocytes # 2.2 10*3/uL (0.11-0.8); Monocytes % 38.3 % (1.7-12.7); NRBC # 3.94 10*3/uL; Red Cell Distribution Width 18.2 % (9.3-17.3); White Blood Count 5.9 T/CUMM (4-12)
[2022-02-12 06:19] LABS: Platelet Count 7 T/CUMM (130-400)
[2022-02-12 06:30] LABS: Albumin 1.9 G/DL (3.4-5.0); Bilirubin,Total 1.2 MG/DL (0.20-1.00); Calcium 10.8 MG/DL (8.5-10.1); Potassium 4.2 MMOL/L (3.5-5.1); Total Protein 6.8 G/DL (6.4-8.2)
[2022-02-12] MEDS: INSULIN LISPRO 100 UNIT/ML SUBCUT SCH ×4 (07:29→21:33)
[2022-02-12 07:42] LABS: Lymphocytes 60 % (20-55); Myelocytes 4 %; Nucleated Red Blood Cells 55 /100 WBC (0-5); Platelet Estimate Decreased; Target Cells Slight; Total Cells Counted 100
[2022-02-12] MEDS: PANTOPRAZOLE 40 MG VIAL IV SCH ×2 (08:43→20:52)
[2022-02-12] MEDS: FLUCONAZOLE 100 MG TABLET PO SCH (08:44)
[2022-02-12] MEDS: DOCUSATE SODIUM 100 MG CAPSULE PO SCH ×2 (08:44→20:50)
[2022-02-12] MEDS: GABAPENTIN 100 MG CAPSULE PO SCH ×2 (08:44→20:51)
[2022-02-12] MEDS: SUCRALFATE 1 GM/10 ML UDCUP PO SCH ×4 (08:44→20:50)
[2022-02-12] MEDS: POTASSIUM CHLORIDE 20 MEQ TABLET PO SCH ×2 (08:44→20:51)
[2022-02-12] MEDS: MULTIVITAMIN (BEROCCA) TABLET PO SCH (08:44)
[2022-02-12] MEDS: POLYETHYLENE GLYCOL POWDER 17 GM PACK PO SCH ×2 (08:48→20:51)
[2022-02-12] MEDS ORDERED: SODIUM CHLORIDE 0.9% 1,000 ML IV PRN (11:02)
[2022-02-12] MEDS: MICAFUNGIN 100 MG in SODIUM CHLORIDE 0.9% 100 ML IV SCH (15:22)
[2022-02-12] MEDS: PROMETHAZINE INJ 25 MG in SODIUM CHLORIDE 0.9% 50 ML IV PRN (17:34)
[2022-02-12] MEDS: INSULIN GLARGINE 100 UNIT/ML SUBCUT SCH (20:51)
[2022-02-12] MEDS: SIMVASTATIN 20 MG TABLET PO SCH (20:52)
[2022-02-13] MEDS: MEROPENEM 500 MG in SODIUM CHLORIDE 0.9% 100 ML IV SCH ×4 (00:37→18:15)
[2022-02-13] MEDS: MORPHINE 2 MG/1 ML SYRINGE IV PRN ×2 (02:57→21:28)
[2022-02-13] MEDS: ACETAMINOPHEN 325 MG TABLET PO PRN ×2 (05:22→20:25)
[2022-02-13 06:26] LABS: Basophils % 0.6 % (0.0-0.8); Hematocrit 22.8 VOL% (35.7-47.0); Hemoglobin 7.5 GM/DL (12.0-16.0); Immature Granulocytes Absolute 1.04 #; Lymphocytes # 2.6 10*3/uL (1.4-4.0); Lymphocytes % 36.8 % (21.3-54.2); Mean Corpuscular HGB Conc 32.9 GM/DL (32-36); Mean Corpuscular Volume 86.4 FL (87-102); Monocytes # 2.4 10*3/uL (0.11-0.8); NRBC # 5.32 10*3/uL; Neutrophils % 12.6 % (38.7-73.9); Red Blood Count 2.64 MC/CUMM (3.8-5.5); Red Cell Distribution Width 18.2 % (9.3-17.3); White Blood Count 6.9 T/CUMM (4-12)
[2022-02-13 06:39] LABS: Platelet Count 8 T/CUMM (130-400)
[2022-02-13 06:46] LABS: Albumin 1.9 G/DL (3.4-5.0); Bilirubin,Total 1.2 MG/DL (0.20-1.00); Calcium 10.5 MG/DL (8.5-10.1); Osmolality,Calculated 267.1 MOS/KG (273-304); Total Protein 6.7 G/DL (6.4-8.2)
[2022-02-13 07:02] LABS: Lymphocytes 77 % (20-55); Myelocytes 5 %; Nucleated Red Blood Cells 123 /100 WBC (0-5); Target Cells Slight; Total Cells Counted 100
[2022-02-13 07:03] LABS: Platelet Estimate Decreased
[2022-02-13] MEDS: INSULIN LISPRO 100 UNIT/ML SUBCUT SCH ×4 (07:28→20:31)
[2022-02-13] MEDS: POLYETHYLENE GLYCOL POWDER 17 GM PACK PO SCH ×2 (09:20→20:22)
[2022-02-13] MEDS: DOCUSATE SODIUM 100 MG CAPSULE PO SCH ×2 (09:20→20:21)
[2022-02-13] MEDS: POTASSIUM CHLORIDE 20 MEQ TABLET PO SCH ×2 (09:21→20:21)
[2022-02-13] MEDS: SUCRALFATE 1 GM/10 ML UDCUP PO SCH ×4 (09:21→20:20)
[2022-02-13] MEDS: GABAPENTIN 100 MG CAPSULE PO SCH ×2 (09:21→20:22)
[2022-02-13] MEDS: MULTIVITAMIN (BEROCCA) TABLET PO SCH (09:21)
[2022-02-13] MEDS: FLUCONAZOLE 100 MG TABLET PO SCH (09:24)
[2022-02-13] MEDS: PANTOPRAZOLE 40 MG VIAL IV SCH ×2 (09:24→20:22)
[2022-02-13] MEDS ORDERED: SODIUM CHLORIDE 0.9% 1,000 ML IV PRN (09:28)
[2022-02-13] MEDS: MICAFUNGIN 100 MG in SODIUM CHLORIDE 0.9% 100 ML IV SCH (10:28)
[2022-02-13] MEDS: PROMETHAZINE INJ 25 MG in SODIUM CHLORIDE 0.9% 50 ML IV PRN ×2 (12:07→19:22)
[2022-02-13] MEDS: INSULIN GLARGINE 100 UNIT/ML SUBCUT SCH (20:22)
[2022-02-13] MEDS: SIMVASTATIN 20 MG TABLET PO SCH (20:24)
[2022-02-14] MEDS: MEROPENEM 500 MG in SODIUM CHLORIDE 0.9% 100 ML IV SCH ×4 (00:06→17:23)
[2022-02-14 06:09] LABS: Basophils % 0.6 % (0.0-0.8); Eosinophils % 0.2 % (0.00-10.9); Hemoglobin 7.5 GM/DL (12.0-16.0); Immature Granulocytes % 12.4 %; Immature Granulocytes Absolute 0.79 #; Lymphocytes # 2.2 10*3/uL (1.4-4.0); Lymphocytes % 35.3 % (21.3-54.2); Mean Corpuscular HGB Conc 32.6 GM/DL (32-36); Mean Corpuscular Volume 86.5 FL (87-102); Monocytes # 2.2 10*3/uL (0.11-0.8); Monocytes % 35.1 % (1.7-12.7); NRBC # 6.35 10*3/uL; Neutrophils % 16.4 % (38.7-73.9); Red Blood Count 2.66 MC/CUMM (3.8-5.5); White Blood Count 6.4 T/CUMM (4-12)
[2022-02-14 06:10] LABS: Platelet Count 9 T/CUMM (130-400)
[2022-02-14 06:34] LABS: Albumin 2.1 G/DL (3.4-5.0); Bilirubin,Total 1.3 MG/DL (0.20-1.00); Calcium 10.5 MG/DL (8.5-10.1); Osmolality,Calculated 271.7 MOS/KG (273-304); Potassium 4.2 MMOL/L (3.5-5.1); Total Protein 6.9 G/DL (6.4-8.2)
[2022-02-14 06:35] LABS: Band Neutrophils 3 % (0-10); Eosinophils 2 % (0-10); Lymphocytes 62 % (20-55); Nucleated Red Blood Cells 249 /100 WBC (0-5); Total Cells Counted 100
[2022-02-14 06:36] LABS: Hypochromia 1+; Microcytosis 1+; Ovalocytes Slight; Platelet Estimate Decreased
[2022-02-14 06:37] LABS: Atypical Lymphocytes Few
[2022-02-14] MEDS: INSULIN LISPRO 100 UNIT/ML SUBCUT SCH ×4 (08:18→20:34)
[2022-02-14] MEDS: SUCRALFATE 1 GM/10 ML UDCUP PO SCH ×4 (09:20→20:34)
[2022-02-14] MEDS: GABAPENTIN 100 MG CAPSULE PO SCH ×2 (09:21→20:36)
[2022-02-14] MEDS: POTASSIUM CHLORIDE 20 MEQ TABLET PO SCH ×2 (09:22→20:35)
[2022-02-14] MEDS: MULTIVITAMIN (BEROCCA) TABLET PO SCH (09:22)
[2022-02-14] MEDS: POLYETHYLENE GLYCOL POWDER 17 GM PACK PO SCH ×2 (09:26→20:35)
[2022-02-14] MEDS: DOCUSATE SODIUM 100 MG CAPSULE PO SCH ×2 (09:26→20:34)
[2022-02-14] MEDS: PANTOPRAZOLE 40 MG VIAL IV SCH ×2 (09:34→20:36)
[2022-02-14] MEDS: MICAFUNGIN 100 MG in SODIUM CHLORIDE 0.9% 100 ML IV SCH (10:00)
[2022-02-14] MEDS ORDERED: SODIUM CHLORIDE 0.9% 1,000 ML IV PRN (10:33)
[2022-02-14] MEDS: PROMETHAZINE INJ 25 MG in SODIUM CHLORIDE 0.9% 50 ML IV PRN (12:18)
[2022-02-14] MEDS: INSULIN GLARGINE 100 UNIT/ML SUBCUT SCH (20:35)
[2022-02-14] MEDS: SIMVASTATIN 20 MG TABLET PO SCH (20:36)
[2022-02-14] MEDS: ACETAMINOPHEN 325 MG TABLET PO PRN (20:37)
[2022-02-14] MEDS: MORPHINE 2 MG/1 ML SYRINGE IV PRN (20:56)
[2022-02-15] MEDS: MEROPENEM 500 MG in SODIUM CHLORIDE 0.9% 100 ML IV SCH ×4 (00:40→18:55)
[2022-02-15] MEDS: PROMETHAZINE INJ 25 MG in SODIUM CHLORIDE 0.9% 50 ML IV PRN (01:47)
[2022-02-15 05:53] LABS: Basophils % 0.6 % (0.0-0.8); Hemoglobin 7.9 GM/DL (12.0-16.0); Immature Granulocytes % 13.9 %; Immature Granulocytes Absolute 0.91 #; Lymphocytes # 2.4 10*3/uL (1.4-4.0); Lymphocytes % 36.4 % (21.3-54.2); Mean Corpuscular HGB Conc 32.9 GM/DL (32-36); Mean Corpuscular Volume 86.3 FL (87-102); Monocytes # 2.1 10*3/uL (0.11-0.8); Monocytes % 32.6 % (1.7-12.7); NRBC # 8.17 10*3/uL; Neutrophils % 16.5 % (38.7-73.9); Red Blood Count 2.78 MC/CUMM (3.8-5.5); Red Cell Distribution Width 18.2 % (9.3-17.3); White Blood Count 6.5 T/CUMM (4-12)
[2022-02-15 05:55] LABS: Platelet Count 8 T/CUMM (130-400)
[2022-02-15 06:23] LABS: Atypical Lymphocytes Moderate; Band Neutrophils 5 % (0-10); Hypochromia 1+; Lymphocytes 66 % (20-55); Microcytosis 1+; Myelocytes 1 %; Nucleated Red Blood Cells 171 /100 WBC (0-5); Total Cells Counted 100
[2022-02-15 06:24] LABS: Platelet Estimate Decreased; Polychromasia Slight; Target Cells Slight
[2022-02-15] MEDS: SUCRALFATE 1 GM/10 ML UDCUP PO SCH ×4 (06:34→21:53)
[2022-02-15 06:47] LABS: Albumin 2.2 G/DL (3.4-5.0); Calcium 10.9 MG/DL (8.5-10.1); Osmolality,Calculated 274.5 MOS/KG (273-304); Potassium 4.1 MMOL/L (3.5-5.1); Total Protein 7.1 G/DL (6.4-8.2)
[2022-02-15] MEDS ORDERED: SODIUM CHLORIDE 0.9% 1,000 ML IV PRN ×2 (08:33→08:38)
[2022-02-15] MEDS: INSULIN LISPRO 100 UNIT/ML SUBCUT SCH ×4 (08:40→21:33)
[2022-02-15] MEDS: PANTOPRAZOLE 40 MG VIAL IV SCH ×2 (09:38→21:54)
[2022-02-15] MEDS: GABAPENTIN 100 MG CAPSULE PO SCH ×2 (09:38→21:54)
[2022-02-15] MEDS: MULTIVITAMIN (BEROCCA) TABLET PO SCH (09:38)
[2022-02-15] MEDS: POTASSIUM CHLORIDE 20 MEQ TABLET PO SCH ×2 (09:39→21:33)
[2022-02-15] MEDS: DOCUSATE SODIUM 100 MG CAPSULE PO SCH ×2 (09:59→21:33)
[2022-02-15] MEDS: POLYETHYLENE GLYCOL POWDER 17 GM PACK PO SCH ×2 (09:59→21:34)
[2022-02-15] MEDS: MORPHINE 2 MG/1 ML SYRINGE IV PRN ×3 (10:22→21:44)
[2022-02-15] MEDS: MICAFUNGIN 100 MG in SODIUM CHLORIDE 0.9% 100 ML IV SCH (10:25)
[2022-02-15] MEDS: ACETAMINOPHEN 325 MG TABLET PO PRN (18:55)
[2022-02-15] MEDS: INSULIN GLARGINE 100 UNIT/ML SUBCUT SCH (21:34)
[2022-02-15] MEDS: SIMVASTATIN 20 MG TABLET PO SCH (21:55)
[2022-02-16] MEDS: MEROPENEM 500 MG in SODIUM CHLORIDE 0.9% 100 ML IV SCH ×3 (00:45→11:33)
[2022-02-16] MEDS: MORPHINE 2 MG/1 ML SYRINGE IV PRN ×2 (02:47→09:18)
[2022-02-16 06:14] LABS: Basophils # 0.1 10*3/uL (0.0-0.2); Basophils % 0.7 % (0.0-0.8); Hematocrit 23.1 VOL% (35.7-47.0); Hemoglobin 7.6 GM/DL (12.0-16.0); Immature Granulocytes % 15.7 %; Immature Granulocytes Absolute 1.13 #; Lymphocytes # 2.1 10*3/uL (1.4-4.0); Lymphocytes % 29.5 % (21.3-54.2); Mean Corpuscular HGB Conc 32.9 GM/DL (32-36); Mean Corpuscular Volume 85.6 FL (87-102); Monocytes # 2.3 10*3/uL (0.11-0.8); Monocytes % 32.5 % (1.7-12.7); NRBC # 12.03 10*3/uL; Neutrophils % 21.6 % (38.7-73.9); Red Cell Distribution Width 18.9 % (9.3-17.3); White Blood Count 7.2 T/CUMM (4-12)
[2022-02-16 06:17] LABS: Platelet Count 11 T/CUMM (130-400)
[2022-02-16 06:39] LABS: Band Neutrophils 5 % (0-10); Eosinophils 1 % (0-10); Hypochromia Slight; Lymphocytes 46 % (20-55); Microcytosis Slight; Nucleated Red Blood Cells 268 /100 WBC (0-5); Platelet Estimate Decreased; Total Cells Counted 100
[2022-02-16 06:43] LABS: Albumin 2.2 G/DL (3.4-5.0); Bilirubin,Total 1.2 MG/DL (0.20-1.00); Calcium 10.4 MG/DL (8.5-10.1); Osmolality,Calculated 265.2 MOS/KG (273-304)
[2022-02-16] MEDS: SUCRALFATE 1 GM/10 ML UDCUP PO SCH ×2 (06:46→11:03)
[2022-02-16] MEDS: INSULIN LISPRO 100 UNIT/ML SUBCUT SCH ×2 (08:02→11:32)
[2022-02-16] MEDS ORDERED: SODIUM CHLORIDE 0.9% 1,000 ML IV PRN (09:00)
[2022-02-16] MEDS: MICAFUNGIN 100 MG in SODIUM CHLORIDE 0.9% 100 ML IV SCH (09:10)
[2022-02-16] MEDS: PANTOPRAZOLE 40 MG VIAL IV SCH (09:11)
[2022-02-16] MEDS: MULTIVITAMIN (BEROCCA) TABLET PO SCH (09:11)
[2022-02-16] MEDS: GABAPENTIN 100 MG CAPSULE PO SCH (09:11)
[2022-02-16] MEDS: POTASSIUM CHLORIDE 20 MEQ TABLET PO SCH (09:11)
[2022-02-16] MEDS: DOCUSATE SODIUM 100 MG CAPSULE PO SCH (09:31)
[2022-02-16] MEDS: POLYETHYLENE GLYCOL POWDER 17 GM PACK PO SCH (09:32)
[2022-02-16 17:03] VITALS: BP 150/88
== END 2022-02-16 15:20 | disposition home or self-care (01) | DRG 813 ==
LOC: N.ED 18:31 → SUATTDRO 23:42 → N.TELES 23:42
PROVIDERS: ADMIT Hospitalist; ATTEND Internal Medicine

== ENCOUNTER 2022-03-23 11:56 | Inpatient (IN) ==
[2022-03-23 13:25] LABS: Basophils % 0.8 % (0.0-0.8); Hematocrit 27.4 VOL% (35.7-47.0); Immature Granulocytes % 7.9 %; Immature Granulocytes Absolute 0.29 #; Lymphocytes # 1.8 10*3/uL (1.4-4.0); Lymphocytes % 49.9 % (21.3-54.2); Mean Corpuscular HGB Conc 32.8 GM/DL (32-36); Mean Corpuscular Volume 84.3 FL (87-102); Monocytes # 0.9 10*3/uL (0.11-0.8); Monocytes % 25.5 % (1.7-12.7); NRBC # 2.13 10*3/uL; Neutrophils % 15.9 % (38.7-73.9); Red Blood Count 3.25 MC/CUMM (3.8-5.5); Red Cell Distribution Width 19.8 % (9.3-17.3); White Blood Count 3.7 T/CUMM (4-12)
[2022-03-23 13:27] LABS: Platelet Count 28 T/CUMM (130-400)
[2022-03-23] MEDS ORDERED: ACETAMINOPHEN 500 MG TABLET ONE (13:39)
[2022-03-23 13:48] LABS: Albumin 2.6 G/DL (3.4-5.0); Bilirubin,Total 0.5 MG/DL (0.20-1.00); Calcium 9.9 MG/DL (8.5-10.1); Potassium 4.1 MMOL/L (3.5-5.1); Total Protein 6.3 G/DL (6.4-8.2)
[2022-03-23 13:50] LABS: Atypical Lymphocytes R; Lymphocytes 58 % (20-55); Nucleated Red Blood Cells 87 /100 WBC (0-5); Total Cells Counted 100
[2022-03-23 13:51] LABS: Platelet Estimate Decreased
[2022-03-23 13:52] LABS: Anisocytosis Slight; Microcytosis Slight; Polychromasia Slight
[2022-03-23] MEDS ORDERED: SODIUM CHLORIDE 0.9% 2,050 ML IV ONE (13:59)
[2022-03-23] MEDS: PIPERACILLIN/TAZOBACTAM 3,375 MG in SODIUM CHLORIDE 0.9% 100 ML IV SCH ×2 (14:30→21:40)
[2022-03-23 14:32] LABS: Bilirubin,Urine Negative (Negative); Blood, Urine Negative (Negative); Glucose,Urine (UA) 50 mg/dL (Negative); Ketones,Urine Negative (Negative); Mucus,Urine Occasional /LPF (Occasional); Nitrite,Urine Negative (Negative); Protein,Urine Negative (Negative); RBC,Urine 1 /HPF (0-4); Squamous Epithelial Cell,Urine Occasional /HPF (0-10); Urine Appearance CLEAR (Clear); Urine Color Yellow (Yellow); Urine Specific Gravity 1.011 (1.001-1.035); Urine Urobilinogen < 2.0 eU/dL (<2.0)
[2022-03-23] MEDS ORDERED: GLUCAGON 1 MG VIAL IM PRN (14:47)
[2022-03-23] MEDS ORDERED: GABAPENTIN 100 MG CAPSULE PO PRN (14:49)
[2022-03-23] MEDS ORDERED: DEXTROSE 10% 250 ML BAG IV PRN (14:57)
[2022-03-23] MEDS ORDERED: ENOXAPARIN 40 MG/0.4 ML SYRINGE SUBCUT SCH (15:00)
[2022-03-23] MEDS ORDERED: VANCOMYCIN INJ 1,000 MG in SODIUM CHLORIDE 0.9% 250 ML IV ONE (15:00)
[2022-03-23 15:28] LABS: Thyroid Stimulating Hormone 1.76 uIU/ml (0.358-3.74)
[2022-03-23] MEDS: LACTATED RINGERS 1,000 ML IV SCH ×2 (15:45→23:23)
[2022-03-23 16:11] LABS: Albumin 2.1 G/DL (3.4-5.0); Bilirubin,Total 0.5 MG/DL (0.20-1.00); Calcium 9.3 MG/DL (8.5-10.1); Osmolality,Calculated 274.5 MOS/KG (273-304); Potassium 3.5 MMOL/L (3.5-5.1); Total Protein 5.9 G/DL (6.4-8.2)
[2022-03-23] MEDS: INSULIN LISPRO 100 UNIT/ML SUBCUT SCH ×2 (17:28→21:41)
[2022-03-23] MEDS: POLYETHYLENE GLYCOL POWDER 17 GM PACK PO SCH (17:39)
[2022-03-23] MEDS ORDERED: DOCUSATE SODIUM 100 MG CAPSULE PO SCH (21:00)
[2022-03-23] MEDS ORDERED: INFLUENZA VIRUS VACCINE 0.5 ML SYRINGE IM ONE (21:00)
[2022-03-23] MEDS ORDERED: IPRATROPIUM 0.03% NASAL SPRAY 30 ML BOTTLE BOTH NARES PRN (21:00)
[2022-03-23] MEDS: BISACODYL 5 MG TABLET PO SCH (21:40)
[2022-03-23] MEDS: traZODone 50 MG TABLET PO SCH (21:40)
[2022-03-23] MEDS: SIMVASTATIN 20 MG TABLET PO SCH (21:40)
[2022-03-24] MEDS: VANCOMYCIN INJ 1,000 MG in SODIUM CHLORIDE 0.9% 250 ML IV SCH ×2 (02:43→18:16)
[2022-03-24 05:28] LABS: Calcium 9.4 MG/DL (8.5-10.1); Osmolality,Calculated 278.3 MOS/KG (273-304); Potassium 4.1 MMOL/L (3.5-5.1)
[2022-03-24] MEDS: PIPERACILLIN/TAZOBACTAM 3,375 MG in SODIUM CHLORIDE 0.9% 100 ML IV SCH ×2 (05:35→19:17)
[2022-03-24 05:53] LABS: Basophils % 0.6 % (0.0-0.8); Eosinophils % 0.4 % (0.00-10.9); Immature Granulocytes % 10.1 %; Immature Granulocytes Absolute 0.53 #; Lymphocytes # 2.9 10*3/uL (1.4-4.0); Lymphocytes % 54.7 % (21.3-54.2); Mean Corpuscular Volume 86.6 FL (87-102); Monocytes # 1.1 10*3/uL (0.11-0.8); Monocytes % 21.5 % (1.7-12.7); NRBC # 2.19 10*3/uL; Neutrophils % 12.7 % (38.7-73.9); Red Blood Count 2.31 MC/CUMM (3.8-5.5); White Blood Count 5.3 T/CUMM (4-12)
[2022-03-24 05:56] LABS: Hemoglobin 6.4 GM/DL (12.0-16.0)
[2022-03-24 05:57] LABS: Platelet Count 25 T/CUMM (130-400)
[2022-03-24] MEDS ORDERED: SODIUM CHLORIDE 0.9% 1,000 ML IV PRN (06:13)
[2022-03-24 06:45] LABS: Atypical Lymphocytes Few; Band Neutrophils 3 % (0-10); Hypochromia Slight; Lymphocytes 71 % (20-55); Microcytosis Slight; Nucleated Red Blood Cells 64 /100 WBC (0-5); Platelet Estimate Decreased; Total Cells Counted 100
[2022-03-24] MEDS: INSULIN LISPRO 100 UNIT/ML SUBCUT SCH ×4 (07:44→21:34)
[2022-03-24] MEDS ORDERED: GABAPENTIN 300 MG CAPSULE PO PRN (09:12)
[2022-03-24] MEDS: POLYETHYLENE GLYCOL POWDER 17 GM PACK PO SCH (09:32)
[2022-03-24] MEDS: LACTATED RINGERS 1,000 ML IV SCH (09:36)
[2022-03-24] MEDS: amLODIPine 5 MG TABLET PO SCH (09:38)
[2022-03-24] MEDS: MAGNESIUM CHLORIDE 64 MG TABLET PO SCH (09:38)
[2022-03-24] MEDS: MORPHINE 2 MG/1 ML SYRINGE IV PRN ×3 (09:41→21:35)
[2022-03-24] MEDS: ONDANSETRON 4 MG/2 ML VIAL IV PRN ×2 (09:44→16:32)
[2022-03-24] MEDS ORDERED: ACETAMINOPHEN 325 MG TABLET PO ONE (14:22)
[2022-03-24] MEDS ORDERED: diphenhydrAMINE CAP 25 MG CAPSULE PO ONE (14:22)
[2022-03-24 20:21] LABS: Basophils % 0.6 % (0.0-0.8); Eosinophils % 0.2 % (0.00-10.9); Hematocrit 25.4 VOL% (35.7-47.0); Hemoglobin 8.5 GM/DL (12.0-16.0); Immature Granulocytes % 10.3 %; Immature Granulocytes Absolute 0.48 #; Lymphocytes # 1.7 10*3/uL (1.4-4.0); Lymphocytes % 36.3 % (21.3-54.2); Mean Corpuscular HGB Conc 33.5 GM/DL (32-36); Mean Corpuscular Volume 85.5 FL (87-102); Monocytes # 1.6 10*3/uL (0.11-0.8); Monocytes % 35.1 % (1.7-12.7); NRBC # 3.92 10*3/uL; Neutrophils % 17.5 % (38.7-73.9); Red Blood Count 2.97 MC/CUMM (3.8-5.5); Red Cell Distribution Width 16.5 % (9.3-17.3); White Blood Count 4.7 T/CUMM (4-12)
[2022-03-24 20:27] LABS: Platelet Count 23 T/CUMM (130-400)
[2022-03-24 20:54] LABS: Band Neutrophils 6 % (0-10); Lymphocytes 45 % (20-55); Metamyelocytes 1 %; Myelocytes 6 %; Nucleated Red Blood Cells 108 /100 WBC (0-5); Total Cells Counted 100
[2022-03-24 20:56] LABS: Anisocytosis Slight; Hypochromia Slight; Macrocytosis Slight; Microcytosis Slight; Platelet Estimate Decreased; Polychromasia Slight
[2022-03-24 20:57] LABS: Atypical Lymphocytes Few
[2022-03-24] MEDS: SIMVASTATIN 20 MG TABLET PO SCH (21:33)
[2022-03-24] MEDS: BISACODYL 5 MG TABLET PO SCH (21:33)
[2022-03-24] MEDS: traZODone 50 MG TABLET PO SCH (21:34)
[2022-03-25] MEDS: MORPHINE 2 MG/1 ML SYRINGE IV PRN ×4 (01:23→23:51)
[2022-03-25] MEDS: PIPERACILLIN/TAZOBACTAM 3,375 MG in SODIUM CHLORIDE 0.9% 100 ML IV SCH ×3 (01:43→18:13)
[2022-03-25] MEDS: ONDANSETRON 4 MG/2 ML VIAL IV PRN ×3 (01:56→23:50)
[2022-03-25] MEDS: ACETAMINOPHEN 325 MG TABLET PO PRN ×2 (04:48→18:12)
[2022-03-25 04:52] LABS: Basophils # 0.1 10*3/uL (0.0-0.2); Basophils % 1.3 % (0.0-0.8); Eosinophils % 0.2 % (0.00-10.9); Hematocrit 26.5 VOL% (35.7-47.0); Hemoglobin 8.8 GM/DL (12.0-16.0); Immature Granulocytes % 10.5 %; Lymphocytes # 1.5 10*3/uL (1.4-4.0); Lymphocytes % 30.6 % (21.3-54.2); Mean Corpuscular HGB Conc 33.2 GM/DL (32-36); Monocytes # 1.9 10*3/uL (0.11-0.8); Monocytes % 39.5 % (1.7-12.7); NRBC # 4.92 10*3/uL; Neutrophils % 17.9 % (38.7-73.9); Red Blood Count 3.08 MC/CUMM (3.8-5.5); Red Cell Distribution Width 16.5 % (9.3-17.3); White Blood Count 4.7 T/CUMM (4-12)
[2022-03-25 04:54] LABS: Platelet Count 23 T/CUMM (130-400)
[2022-03-25 05:26] LABS: Albumin 2.1 G/DL (3.4-5.0); Bilirubin,Total 0.8 MG/DL (0.20-1.00); Calcium 9.4 MG/DL (8.5-10.1); Potassium 4.3 MMOL/L (3.5-5.1); Total Protein 6.2 G/DL (6.4-8.2)
[2022-03-25 05:36] LABS: Lymphocytes 50 % (20-55); Nucleated Red Blood Cells 107 /100 WBC (0-5); Platelet Estimate Decreased; Total Cells Counted 100
[2022-03-25] MEDS: VANCOMYCIN INJ 1,000 MG in SODIUM CHLORIDE 0.9% 250 ML IV SCH ×2 (05:53→23:43)
[2022-03-25] MEDS: MAGNESIUM CHLORIDE 64 MG TABLET PO SCH (08:34)
[2022-03-25] MEDS: amLODIPine 5 MG TABLET PO SCH ×2 (08:34→09:59)
[2022-03-25] MEDS: INSULIN LISPRO 100 UNIT/ML SUBCUT SCH ×3 (08:35→23:48)
[2022-03-25] MEDS: POLYETHYLENE GLYCOL POWDER 17 GM PACK PO SCH (08:36)
[2022-03-25] MEDS: LACTATED RINGERS 1,000 ML IV SCH ×2 (09:19→17:52)
[2022-03-25] MEDS: GABAPENTIN 300 MG CAPSULE PO SCH ×3 (09:53→23:39)
[2022-03-25] MEDS: FLUCONAZOLE INJ 100 MG/50 ML PREMIX IV SCH (13:39)
[2022-03-25] MEDS: MELATONIN 3 MG TABLET PO PRN (23:38)
[2022-03-25] MEDS: SIMVASTATIN 20 MG TABLET PO SCH (23:38)
[2022-03-25] MEDS: BISACODYL 5 MG TABLET PO SCH (23:40)
[2022-03-26] MEDS: LACTATED RINGERS 1,000 ML IV SCH ×3 (03:37→22:18)
[2022-03-26] MEDS: PIPERACILLIN/TAZOBACTAM 3,375 MG in SODIUM CHLORIDE 0.9% 100 ML IV SCH (03:38)
[2022-03-26 05:18] LABS: Basophils % 0.9 % (0.0-0.8); Eosinophils % 0.5 % (0.00-10.9); Hematocrit 29.6 VOL% (35.7-47.0); Hemoglobin 9.7 GM/DL (12.0-16.0); Immature Granulocytes % 8.8 %; Immature Granulocytes Absolute 0.38 #; Lymphocytes # 1.4 10*3/uL (1.4-4.0); Lymphocytes % 32.9 % (21.3-54.2); Mean Corpuscular HGB Conc 32.8 GM/DL (32-36); Mean Corpuscular Volume 87.1 FL (87-102); Monocytes # 1.2 10*3/uL (0.11-0.8); NRBC # 6.18 10*3/uL; Neutrophils % 28.9 % (38.7-73.9); Red Cell Distribution Width 16.7 % (9.3-17.3); White Blood Count 4.3 T/CUMM (4-12)
[2022-03-26 05:21] LABS: Platelet Count 19 T/CUMM (130-400)
[2022-03-26 05:37] LABS: Albumin 2.2 G/DL (3.4-5.0); Calcium 9.6 MG/DL (8.5-10.1); Osmolality,Calculated 279.7 MOS/KG (273-304); Potassium 3.8 MMOL/L (3.5-5.1); Total Protein 6.8 G/DL (6.4-8.2)
[2022-03-26 06:03] LABS: Band Neutrophils 17 % (0-10); Eosinophils 1 % (0-10); Lymphocytes 55 % (20-55); Myelocytes 1 %; Nucleated Red Blood Cells 200 /100 WBC (0-5); Platelet Estimate Decreased; Total Cells Counted 100
[2022-03-26 06:04] LABS: Atypical Lymphocytes Few
[2022-03-26 06:05] LABS: Anisocytosis 1+; Burr Cells Few; Microcytosis Slight; Tear Drop Cells Few
[2022-03-26] MEDS: ACETAMINOPHEN 325 MG TABLET PO PRN ×2 (09:06→18:17)
[2022-03-26] MEDS: GABAPENTIN 300 MG CAPSULE PO SCH ×3 (09:07→22:16)
[2022-03-26] MEDS: amLODIPine 5 MG TABLET PO SCH (09:07)
[2022-03-26] MEDS: MAGNESIUM CHLORIDE 64 MG TABLET PO SCH (09:08)
[2022-03-26] MEDS: INSULIN LISPRO 100 UNIT/ML SUBCUT SCH ×4 (09:10→22:17)
[2022-03-26] MEDS: POLYETHYLENE GLYCOL POWDER 17 GM PACK PO SCH (10:23)
[2022-03-26] MEDS: FLUCONAZOLE INJ 100 MG/50 ML PREMIX IV SCH (10:24)
[2022-03-26] MEDS: VANCOMYCIN INJ 1,000 MG in SODIUM CHLORIDE 0.9% 250 ML IV SCH ×2 (11:10→18:12)
[2022-03-26] MEDS: MORPHINE 2 MG/1 ML SYRINGE IV PRN ×2 (12:37→22:17)
[2022-03-26] MEDS: PIPERACILLIN/TAZOBACTAM 4,500 MG in SODIUM CHLORIDE 0.9% 100 ML IV SCH (13:28)
[2022-03-26 14:37] LABS: Bacteria,Urine Occasional /HPF (Few); Bilirubin,Urine Negative (Negative); Blood, Urine Small mg/dL (Negative); Glucose,Urine (UA) 50 mg/dL (Negative); Ketones,Urine Negative (Negative); Mucus,Urine Occasional /LPF (Occasional); Nitrite,Urine Negative (Negative); Protein,Urine Negative (Negative); RBC,Urine 1 /HPF (0-4); Squamous Epithelial Cell,Urine Occasional /HPF (0-10); Urine Appearance CLEAR (Clear); Urine Color Straw (Yellow); Urine Specific Gravity 1.005 (1.001-1.035)
[2022-03-26] MEDS: SIMVASTATIN 20 MG TABLET PO SCH (22:16)
[2022-03-26] MEDS: MELATONIN 3 MG TABLET PO PRN (22:17)
[2022-03-27] MEDS: PIPERACILLIN/TAZOBACTAM 4,500 MG in SODIUM CHLORIDE 0.9% 100 ML IV SCH ×5 (03:04→20:44)
[2022-03-27] MEDS: LACTATED RINGERS 1,000 ML IV SCH ×3 (03:26→17:27)
[2022-03-27] MEDS: BISACODYL 5 MG TABLET PO SCH ×2 (03:27→20:47)
[2022-03-27] MEDS: VANCOMYCIN INJ 1,000 MG in SODIUM CHLORIDE 0.9% 250 ML IV SCH ×2 (05:30→19:00)
[2022-03-27 06:16] LABS: Basophils % 0.8 % (0.0-0.8); Eosinophils % 0.3 % (0.00-10.9); Hematocrit 24.6 VOL% (35.7-47.0); Hemoglobin 8.2 GM/DL (12.0-16.0); Immature Granulocytes % 11.3 %; Immature Granulocytes Absolute 0.43 #; Lymphocytes # 1.4 10*3/uL (1.4-4.0); Lymphocytes % 36.4 % (21.3-54.2); Mean Corpuscular HGB Conc 33.3 GM/DL (32-36); Mean Corpuscular Volume 86.6 FL (87-102); Monocytes # 1.3 10*3/uL (0.11-0.8); NRBC # 3.84 10*3/uL; Neutrophils % 18.2 % (38.7-73.9); Red Blood Count 2.84 MC/CUMM (3.8-5.5); White Blood Count 3.8 T/CUMM (4-12)
[2022-03-27 06:32] LABS: Bilirubin,Total 0.6 MG/DL (0.20-1.00); Calcium 9.8 MG/DL (8.5-10.1); Osmolality,Calculated 276.5 MOS/KG (273-304); Potassium 3.5 MMOL/L (3.5-5.1); Total Protein 6.1 G/DL (6.4-8.2)
[2022-03-27 06:44] LABS: Platelet Count 20 T/CUMM (130-400)
[2022-03-27 07:14] LABS: Anisocytosis 1+; Atypical Lymphocytes Few; Band Neutrophils 14 % (0-10); Lymphocytes 62 % (20-55); Metamyelocytes 1 %; Nucleated Red Blood Cells 200 /100 WBC (0-5); Platelet Estimate Decreased; Total Cells Counted 100
[2022-03-27 07:15] LABS: Poikilocytosis Slight; Tear Drop Cells Few
[2022-03-27] MEDS ORDERED: SODIUM CHLORIDE 0.9% 1,000 ML IV PRN (08:07)
[2022-03-27] MEDS: MAGNESIUM CHLORIDE 64 MG TABLET PO SCH (09:02)
[2022-03-27] MEDS: amLODIPine 5 MG TABLET PO SCH (09:03)
[2022-03-27] MEDS: GABAPENTIN 300 MG CAPSULE PO SCH ×3 (09:03→20:48)
[2022-03-27] MEDS ORDERED: MYLANTA/LIDO VISC/DIPH 300 ML BOTTLE SWISH/SPIT PRN (09:05)
[2022-03-27] MEDS: POLYETHYLENE GLYCOL POWDER 17 GM PACK PO SCH (09:06)
[2022-03-27] MEDS: oxyCODONE/ACETAMINOPHEN 5-325 MG TABLET PO PRN (10:47)
[2022-03-27] MEDS: ACYCLOVIR INJ 1,000 MG in SODIUM CHLORIDE 0.9% 250 ML IV SCH ×2 (11:45→23:20)
[2022-03-27] MEDS: INSULIN LISPRO 100 UNIT/ML SUBCUT SCH ×4 (13:37→20:47)
[2022-03-27] MEDS: FLUCONAZOLE INJ 100 MG/50 ML PREMIX IV SCH (13:57)
[2022-03-27] MEDS: CHLORHEXIDINE 0.12% ORAL RINSE 60 ML BOTTLE SWISH/SPIT SCH ×4 (14:26→21:43)
[2022-03-27] MEDS: MORPHINE 2 MG/1 ML SYRINGE IV PRN ×2 (14:59→21:43)
[2022-03-27] MEDS: ALBUTEROL/IPRATROPIUM 3 ML NEB RESP TX SCH ×2 (20:00→23:35)
[2022-03-27] MEDS: SIMVASTATIN 20 MG TABLET PO SCH (20:47)
[2022-03-27] MEDS: MELATONIN 3 MG TABLET PO PRN (23:22)
[2022-03-28] MEDS: LACTATED RINGERS 1,000 ML IV SCH ×2 (02:13→08:46)
[2022-03-28] MEDS: ALBUTEROL/IPRATROPIUM 3 ML NEB RESP TX SCH ×3 (03:40→14:13)
[2022-03-28] MEDS: PIPERACILLIN/TAZOBACTAM 4,500 MG in SODIUM CHLORIDE 0.9% 100 ML IV SCH ×3 (04:02→22:34)
[2022-03-28] MEDS: INSULIN LISPRO 100 UNIT/ML SUBCUT SCH ×3 (08:08→15:59)
[2022-03-28 08:13] LABS: Albumin 2.3 G/DL (3.4-5.0); Bilirubin,Total 0.8 MG/DL (0.20-1.00); Calcium 9.6 MG/DL (8.5-10.1); Osmolality,Calculated 276.4 MOS/KG (273-304); Potassium 4.1 MMOL/L (3.5-5.1)
[2022-03-28] MEDS: POLYETHYLENE GLYCOL POWDER 17 GM PACK PO SCH (08:36)
[2022-03-28] MEDS: GABAPENTIN 300 MG CAPSULE PO SCH ×3 (08:38→20:14)
[2022-03-28] MEDS: MAGNESIUM CHLORIDE 64 MG TABLET PO SCH (08:38)
[2022-03-28] MEDS: amLODIPine 5 MG TABLET PO SCH (08:38)
[2022-03-28] MEDS: CHLORHEXIDINE 0.12% ORAL RINSE 60 ML BOTTLE SWISH/SPIT SCH ×4 (08:39→20:15)
[2022-03-28] MEDS: ACYCLOVIR INJ 1,000 MG in SODIUM CHLORIDE 0.9% 250 ML IV SCH ×2 (08:42→17:02)
[2022-03-28] MEDS: MORPHINE 2 MG/1 ML SYRINGE IV PRN ×2 (08:57→22:34)
[2022-03-28 09:53] LABS: Basophils % 0.2 % (0.0-0.8); Hematocrit 21.5 VOL% (35.7-47.0); Immature Granulocytes Absolute 0.24 #; Lymphocytes # 1.4 10*3/uL (1.4-4.0); Lymphocytes % 35.1 % (21.3-54.2); Mean Corpuscular HGB Conc 32.6 GM/DL (32-36); Mean Corpuscular Volume 86.3 FL (87-102); Monocytes # 1.8 10*3/uL (0.11-0.8); Monocytes % 45.3 % (1.7-12.7); NRBC # 4.55 10*3/uL; Neutrophils % 13.4 % (38.7-73.9); Platelet Count 78 T/CUMM (130-400); Red Blood Count 2.49 MC/CUMM (3.8-5.5); Red Cell Distribution Width 16.3 % (9.3-17.3)
[2022-03-28 10:20] LABS: Band Neutrophils 3 % (0-10); Lymphocytes 54 % (20-55); Nucleated Red Blood Cells 182 /100 WBC (0-5); Total Cells Counted 100
[2022-03-28 10:21] LABS: Atypical Lymphocytes Few; Hypochromia Slight; Microcytosis Slight; Platelet Estimate Decreased
[2022-03-28] MEDS ORDERED: SODIUM CHLORIDE 0.9% 1,000 ML IV PRN (10:25)
[2022-03-28] MEDS: FLUCONAZOLE INJ 100 MG/50 ML PREMIX IV SCH (10:54)
[2022-03-28] MEDS: VANCOMYCIN INJ 1,000 MG in SODIUM CHLORIDE 0.9% 250 ML IV SCH (11:27)
[2022-03-28] MEDS: oxyCODONE/ACETAMINOPHEN 5-325 MG TABLET PO PRN ×2 (13:33→20:14)
[2022-03-28] MEDS: LEVALBUTEROL 1.25 MG/3 ML NEB RESP TX SCH ×2 (14:47→19:35)
[2022-03-28] MEDS: MELATONIN 3 MG TABLET PO PRN (20:14)
[2022-03-28] MEDS: BISACODYL 5 MG TABLET PO SCH (20:14)
[2022-03-28] MEDS: SIMVASTATIN 20 MG TABLET PO SCH (20:14)
[2022-03-28 22:16] LABS: Hematocrit 32.4 VOL% (35.7-47.0); Hemoglobin 10.3 GM/DL (12.0-16.0)
[2022-03-29] MEDS: LEVALBUTEROL 1.25 MG/3 ML NEB RESP TX SCH ×4 (00:12→19:52)
[2022-03-29] MEDS: ACETAMINOPHEN 325 MG TABLET PO PRN (00:50)
[2022-03-29] MEDS: INSULIN LISPRO 100 UNIT/ML SUBCUT SCH ×5 (01:35→21:30)
[2022-03-29] MEDS: oxyCODONE/ACETAMINOPHEN 5-325 MG TABLET PO PRN ×3 (02:35→21:27)
[2022-03-29] MEDS: VANCOMYCIN INJ 1,000 MG in SODIUM CHLORIDE 0.9% 250 ML IV SCH (02:50)
[2022-03-29] MEDS: ACYCLOVIR INJ 1,000 MG in SODIUM CHLORIDE 0.9% 250 ML IV SCH ×2 (04:21→08:47)
[2022-03-29] MEDS: MORPHINE 2 MG/1 ML SYRINGE IV PRN ×3 (04:47→22:47)
[2022-03-29 06:09] LABS: Basophils % 0.6 % (0.0-0.8); Eosinophils % 0.3 % (0.00-10.9); Hematocrit 30.1 VOL% (35.7-47.0); Immature Granulocytes % 6.3 %; Immature Granulocytes Absolute 0.22 #; Lymphocytes # 1.4 10*3/uL (1.4-4.0); Mean Corpuscular HGB Conc 33.2 GM/DL (32-36); Mean Corpuscular Volume 85.8 FL (87-102); Monocytes # 1.5 10*3/uL (0.11-0.8); Monocytes % 42.4 % (1.7-12.7); NRBC # 3.03 10*3/uL; Neutrophils % 11.4 % (38.7-73.9); Platelet Count 50 T/CUMM (130-400); Red Blood Count 3.51 MC/CUMM (3.8-5.5); Red Cell Distribution Width 15.7 % (9.3-17.3); White Blood Count 3.5 T/CUMM (4-12)
[2022-03-29] MEDS: PIPERACILLIN/TAZOBACTAM 4,500 MG in SODIUM CHLORIDE 0.9% 100 ML IV SCH (06:09)
[2022-03-29 06:31] LABS: Albumin 2.1 G/DL (3.4-5.0); Bilirubin,Total 0.6 MG/DL (0.20-1.00); Calcium 9.6 MG/DL (8.5-10.1); Osmolality,Calculated 281.5 MOS/KG (273-304); Potassium 3.4 MMOL/L (3.5-5.1); Total Protein 6.2 G/DL (6.4-8.2)
[2022-03-29 06:35] LABS: Band Neutrophils 1 % (0-10); Lymphocytes 63 % (20-55); Nucleated Red Blood Cells 139 /100 WBC (0-5); Total Cells Counted 100
[2022-03-29 06:36] LABS: Atypical Lymphocytes Few; Hypochromia Slight
[2022-03-29 06:37] LABS: Microcytosis Slight; Platelet Estimate Decreased; Polychromasia Slight
[2022-03-29] MEDS ORDERED: POTASSIUM CHLORIDE 20 MEQ TABLET PO ONE (07:26)
[2022-03-29] MEDS: amLODIPine 5 MG TABLET PO SCH (08:04)
[2022-03-29] MEDS: GABAPENTIN 300 MG CAPSULE PO SCH ×3 (08:04→21:26)
[2022-03-29] MEDS: MAGNESIUM CHLORIDE 64 MG TABLET PO SCH (08:04)
[2022-03-29] MEDS: INSULIN GLARGINE 100 UNIT/ML SUBCUT SCH (08:05)
[2022-03-29] MEDS: CHLORHEXIDINE 0.12% ORAL RINSE 60 ML BOTTLE SWISH/SPIT SCH ×4 (08:08→21:30)
[2022-03-29] MEDS: POLYETHYLENE GLYCOL POWDER 17 GM PACK PO SCH (08:08)
[2022-03-29] MEDS ORDERED: ALUM/MAG/SIMETH/LIDO VISC 1:1 30 ML BOTTLE PO ONE (08:21)
[2022-03-29] MEDS: PANTOPRAZOLE 40 MG TABLET PO SCH (08:46)
[2022-03-29] MEDS: ONDANSETRON 4 MG/2 ML VIAL IV PRN (08:49)
[2022-03-29] MEDS: CYCLOBENZAPRINE 10 MG TABLET PO SCH ×3 (09:01→21:26)
[2022-03-29] MEDS: cefTRIAXone 2,000 MG in SODIUM CHLORIDE 0.9% 100 ML IV SCH (12:28)
[2022-03-29] MEDS: SIMVASTATIN 20 MG TABLET PO SCH (21:26)
[2022-03-29] MEDS: BISACODYL 5 MG TABLET PO SCH (21:26)
[2022-03-29] MEDS: ACYCLOVIR 200 MG CAPSULE PO SCH (21:27)
[2022-03-29] MEDS: MELATONIN 3 MG TABLET PO PRN (21:27)
[2022-03-30] MEDS: LEVALBUTEROL 1.25 MG/3 ML NEB RESP TX SCH ×4 (00:25→17:40)
[2022-03-30] MEDS: ACETAMINOPHEN 325 MG TABLET PO PRN ×3 (02:23→16:01)
[2022-03-30 05:35] LABS: Basophils % 0.6 % (0.0-0.8); Eosinophils % 0.3 % (0.00-10.9); Hematocrit 28.7 VOL% (35.7-47.0); Hemoglobin 9.4 GM/DL (12.0-16.0); Immature Granulocytes % 4.1 %; Immature Granulocytes Absolute 0.14 #; Lymphocytes # 1.7 10*3/uL (1.4-4.0); Lymphocytes % 50.6 % (21.3-54.2); Mean Corpuscular HGB Conc 32.8 GM/DL (32-36); Mean Corpuscular Volume 86.4 FL (87-102); Monocytes # 1.2 10*3/uL (0.11-0.8); Monocytes % 35.5 % (1.7-12.7); NRBC # 2.19 10*3/uL; Neutrophils % 8.9 % (38.7-73.9); Platelet Count 40 T/CUMM (130-400); Red Blood Count 3.32 MC/CUMM (3.8-5.5); White Blood Count 3.4 T/CUMM (4-12)
[2022-03-30] MEDS: oxyCODONE/ACETAMINOPHEN 5-325 MG TABLET PO PRN ×2 (05:40→13:02)
[2022-03-30 06:01] LABS: Albumin 2.1 G/DL (3.4-5.0); Bilirubin,Total 0.5 MG/DL (0.20-1.00); Calcium 10.5 MG/DL (8.5-10.1); Osmolality,Calculated 273.7 MOS/KG (273-304); Potassium 3.8 MMOL/L (3.5-5.1); Total Protein 6.5 G/DL (6.4-8.2)
[2022-03-30 06:03] LABS: Band Neutrophils 1 % (0-10); Eosinophils 1 % (0-10); Lymphocytes 67 % (20-55); Nucleated Red Blood Cells 93 /100 WBC (0-5); Platelet Estimate Decreased; Total Cells Counted 100
[2022-03-30 06:04] LABS: Atypical Lymphocytes Few; Hypochromia 1+; Microcytosis 1+
[2022-03-30] MEDS: INSULIN LISPRO 100 UNIT/ML SUBCUT SCH ×4 (08:25→21:12)
[2022-03-30] MEDS: ACYCLOVIR 200 MG CAPSULE PO SCH ×2 (09:05→20:25)
[2022-03-30] MEDS: MAGNESIUM CHLORIDE 64 MG TABLET PO SCH (09:05)
[2022-03-30] MEDS: PANTOPRAZOLE 40 MG TABLET PO SCH (09:05)
[2022-03-30] MEDS: GABAPENTIN 300 MG CAPSULE PO SCH ×3 (09:05→20:25)
[2022-03-30] MEDS: FLUCONAZOLE 100 MG TABLET PO SCH (09:05)
[2022-03-30] MEDS: amLODIPine 5 MG TABLET PO SCH (09:05)
[2022-03-30] MEDS: INSULIN GLARGINE 100 UNIT/ML SUBCUT SCH (09:06)
[2022-03-30] MEDS: CHLORHEXIDINE 0.12% ORAL RINSE 60 ML BOTTLE SWISH/SPIT SCH ×4 (09:08→20:28)
[2022-03-30] MEDS: CYCLOBENZAPRINE 10 MG TABLET PO SCH ×3 (09:08→20:25)
[2022-03-30] MEDS: POLYETHYLENE GLYCOL POWDER 17 GM PACK PO SCH (09:11)
[2022-03-30] MEDS: cefTRIAXone 2,000 MG in SODIUM CHLORIDE 0.9% 100 ML IV SCH (12:53)
[2022-03-30] MEDS: MENTHOL/ZINC OXIDE OINT 71 GM JAR TOP SCH ×2 (14:23→20:30)
[2022-03-30] MEDS: FLUTICASONE 50 MCG NASAL SPRAY 16 GM BOTTLE BOTH NARES SCH ×2 (14:24→20:30)
[2022-03-30] MEDS: KETOROLAC 15 MG/1 ML VIAL IV PRN (19:34)
[2022-03-30] MEDS: ONDANSETRON 4 MG/2 ML VIAL IV PRN (19:35)
[2022-03-30] MEDS: SIMVASTATIN 20 MG TABLET PO SCH (20:26)
[2022-03-30] MEDS: BISACODYL 5 MG TABLET PO SCH (20:26)
[2022-03-31] MEDS: LEVALBUTEROL 1.25 MG/3 ML NEB RESP TX SCH ×3 (00:02→13:03)
[2022-03-31 04:41] LABS: Basophils % 0.3 % (0.0-0.8); Hematocrit 29.7 VOL% (35.7-47.0); Hemoglobin 9.7 GM/DL (12.0-16.0); Immature Granulocytes % 5.3 %; Immature Granulocytes Absolute 0.16 #; Lymphocytes # 1.6 10*3/uL (1.4-4.0); Mean Corpuscular HGB Conc 32.7 GM/DL (32-36); Mean Corpuscular Volume 86.8 FL (87-102); Monocytes # 0.8 10*3/uL (0.11-0.8); Monocytes % 25.2 % (1.7-12.7); NRBC # 2.47 10*3/uL; Neutrophils % 15.2 % (38.7-73.9); Platelet Count 44 T/CUMM (130-400); Red Blood Count 3.42 MC/CUMM (3.8-5.5)
[2022-03-31] MEDS: KETOROLAC 15 MG/1 ML VIAL IV PRN (04:52)
[2022-03-31 04:57] LABS: Osmolality,Calculated 284.1 MOS/KG (273-304); Potassium 3.7 MMOL/L (3.5-5.1)
[2022-03-31 05:23] LABS: Band Neutrophils 2 % (0-10); Lymphocytes 71 % (20-55); Nucleated Red Blood Cells 103 /100 WBC (0-5); Total Cells Counted 100
[2022-03-31 05:24] LABS: Atypical Lymphocytes Few; Hypochromia 1+; Microcytosis 1+; Target Cells Slight
[2022-03-31 05:25] LABS: Ovalocytes Slight; Platelet Estimate Decreased
[2022-03-31] MEDS ORDERED: MAGNESIUM SULF RIDER 2 GM/50 ML PREMIX IV ONE (07:25)
[2022-03-31] MEDS: INSULIN LISPRO 100 UNIT/ML SUBCUT SCH (07:45)
[2022-03-31] MEDS: CYCLOBENZAPRINE 10 MG TABLET PO SCH (09:00)
[2022-03-31] MEDS: FLUCONAZOLE 100 MG TABLET PO SCH (09:01)
[2022-03-31] MEDS: amLODIPine 5 MG TABLET PO SCH (09:02)
[2022-03-31] MEDS: PANTOPRAZOLE 40 MG TABLET PO SCH (09:02)
[2022-03-31] MEDS: ACYCLOVIR 200 MG CAPSULE PO SCH (09:02)
[2022-03-31] MEDS: GABAPENTIN 300 MG CAPSULE PO SCH (09:03)
[2022-03-31] MEDS: MAGNESIUM CHLORIDE 64 MG TABLET PO SCH (09:03)
[2022-03-31] MEDS: FLUTICASONE 50 MCG NASAL SPRAY 16 GM BOTTLE BOTH NARES SCH (09:06)
[2022-03-31] MEDS: POLYETHYLENE GLYCOL POWDER 17 GM PACK PO SCH (09:07)
[2022-03-31] MEDS: CHLORHEXIDINE 0.12% ORAL RINSE 60 ML BOTTLE SWISH/SPIT SCH ×2 (09:08→13:25)
[2022-03-31] MEDS: INSULIN GLARGINE 100 UNIT/ML SUBCUT SCH (09:10)
[2022-03-31] MEDS: oxyCODONE/ACETAMINOPHEN 5-325 MG TABLET PO PRN (09:59)
[2022-03-31] MEDS: MENTHOL/ZINC OXIDE OINT 71 GM JAR TOP SCH (10:00)
[2022-03-31] MEDS: cefTRIAXone 2,000 MG in SODIUM CHLORIDE 0.9% 100 ML IV SCH (11:57)
[2022-03-31 12:06] VITALS: BP 123/77
== END 2022-03-31 14:58 | disposition home or self-care (01) | DRG 808 ==
LOC: N.EDINP 11:56 → N.ED 11:56 → SUATTDRO 14:40 → N.TELES 16:45 → SUATTDRO 03-24 09:05
PROVIDERS: ADMIT Internal Medicine; ATTEND Emergency Medicine